=== PATIENT | female | born 1975 | race Caucasian/White ===

== ENCOUNTER → 2021-09-22 11:22 | Outpatient (BNVA) | payer OTHER, SELFPAY | PROVIDERS: PCP Nurse Practitioner Family; Visit Provider Advanced Practice Midwife ==

== ENCOUNTER 2021-09-28 07:41 | Outpatient (REF) | payer OTHER, SELFPAY ==
[2021-09-28 11:36] LABS: Appearance Urine CLEAR; Color Urine YELLOW; Glucose Urine UA NEG (NEG); Leukocyte Esterase Urine NEG (NEG); Nitrite Urine NEG (NEG); PH 6.5 (5.0-8.0); Specific Gravity - Urine <= 1.005 (1.005-1.025); Urine Blood NEG (NEG); Urine Ketones NEG (NEG); Urine Protein NEG (NEG-TRACE)
[2021-09-28 11:50] LABS: Alanine Aminotransferase 12 U/L (0-31); Albumin Level 4.5 g/dL (3.5-5.0); Alkaline Phosphatase 46 U/L (39-117); Anion Gap 12 (12-20); Aspartate Amino Transferase 19 U/L (5-31); Bilirubin Total 0.5 mg/dL (0.0-1.0); Blood Urea Nitrogen 13 mg/dL (9-16); Calcium 9.6 mg/dL (8.4-10.2); Carbon Dioxide 28 mmol/L (22-29); Chloride 103 mmol/L (96-108); Cholesterol 196 mg/dL; Estimated Glomerular Filt Rate > 60; Glucose Fasting 88 mg/dL (60-99); HDL Cholesterol 67 mg/dL; LDL Cholesterol Calculated 116 mg/dl; Potassium 4.1 mmol/L (3.3-5.1); Sodium 139 mmol/L (135-145); Total Protein 6.9 g/dL (6.5-8.0); Triglycerides 68 mg/dL
[2021-09-28 11:57] LABS: TSH reflex Free T4 0.74 uIU/mL (0.32-4.0)
== END 2021-09-28 07:42 | disposition home or self-care (01) ==
LOC: HO.HMGCLDS 07:41
PROVIDERS: Visit Provider Nurse Practitioner Family
DX: Z00.00 Encounter for general adult medical examination without abnormal findings (principal)
CPT/HCPCS: 36415; 80053; 80061; 81003; 84443

== ENCOUNTER 2021-11-16 14:23 | Outpatient (REF) | payer OTHER, SELFPAY ==
[2021-11-17 09:19] LABS: CT PCR NOT DETECTED (Not Detect.); NG PCR NOT DETECTED (Not Detect.)
== END 2021-11-16 14:24 | disposition home or self-care (01) ==
LOC: HO.LAB 14:23
PROVIDERS: Visit Provider Advanced Practice Midwife
DX: Z30.430 Encounter for insertion of intrauterine contraceptive device (principal); Z87.891 Personal history of nicotine dependence
CPT/HCPCS: 58300; 87491; 87591

== ENCOUNTER → 2021-12-26 08:00 | Outpatient (BNVA) | payer OTHER, SELFPAY | PROVIDERS: Visit Provider Advanced Practice Midwife | DX: Z13.89 Encounter for screening for other disorder (principal) ==

== ENCOUNTER 2022-09-26 09:51 | Emergency (ER) | payer OTHER, SELFPAY ==
[2022-09-26 10:06] VITALS: BP 162/103; PULSE 91; RESP 12; TEMP 36.8; O2SAT 100; BMI 30.4
--- NOTE | 2022-09-26 10:15 | ED.GENADULT ---
HPI - General Adult General Chief complaint: General Medical Stated complaint: rectal bleed Time Seen by Provider: 09/26/22 09:59 Source: patient Mode of arrival: ambulatory Limitations: no limitations History of Present Illness HPI narrative: 47-year-old female no significant past medical history presents to the emergency department with complaints nausea, abdominal pain, cramping, and rectal bleeding on Saturday into Saturday. She reports symptoms began on Saturday as intense cramping and abdominal pain she went to the bathroom and noted she was passing small blood clots with stools and blood on the toilet paper when she wiped. She considered presenting to the emergency department yesterday, however; she was unable to assess her stools for blood due to constipation. She has been able to tolerate PO intake without issue for the past 24 hours. She reports her only GI history is occassional reflux when she eats spicy foods. Pt denies any recent illness, sick contacts, paresthesias, weakness, fever, chills, vomiting, diarrhea, constipation, headache, or vision changes. Onset (ago): day(s) Location: abdomen Radiation: non-radiation Severity: moderate Quality: other (cramping) Pain Consistency: now resolved Associated symptoms: denies other symptoms Treatments prior to arrival: none Related Data Home Medications Medication Instructions Recorded Confirmed levonorgestrel 20 mcg/24 hours (8 intrauterine DAILY 12/26/21 yrs) 52 mg intrauterine device (Mirena) Previous Rx's Medication Instructions Recorded cholecalciferol (vitamin D3) 50 50 mcg PO DAILY 90 days #90 tabs 03/22/22 mcg (2,000 unit) tablet nirmatrelvir 300 mg (150 mg See Rx Instructions PO .COMPLEX 5 04/16/22 x2)-ritonavir 100 mg tablet,dose days #30 ea pack(EUA) (Paxlovid) naproxen 500 mg tablet 500 mg PO BID 30 days #60 tabs 09/03/22 Allergies Allergy/AdvReac Type Severity Reaction Status Date / Time penicillin V Allergy Unknown Rash Verified 12/26/21 08:21 Review of Systems Review of Systems: In addition to documented HPI above, the additional ROS was obtained: Constitutional: No Weight loss, No Fever, No Chills ENT/Mouth: No Ear Pain, No Nasal Congestion, No Sinus Pain, No Hoarseness, No sore throat, No Rhinorrhea, No Swallowing Difficulty Cardiovascular: No Chest Pain, No SOB Respiratory: No Cough, No Sputum, No Wheezing Gastrointestinal: No Nausea, No Vomiting, No Diarrhea, No Constipation, No Abdominal pain Genitourinary: No Dysuria, No Urinary Frequency, No Hematuria, No Urinary Incontinence/retention, No Urgency, No Flank Pain Musculoskeletal: No joint pain, No Myalgias, No Joint Swelling Skin: No Skin Lesions, No rash Neuro: No Weakness, No Numbness, No Paresthesias Yes all other systems are reviewed and are negative [facility] Past Medical History Attestation statement: The following information was validated with the patient. Source: old records reviewed Medical History Hand arthritis Raynauds disease Surgical History History of placement of ear tubes Family History Family History Maternal Aunt Colon cancer Social History Social History Housing: House Alcohol intake: current Alcohol intake frequency: holidays/special occasions only Patient Tobacco Use Status: Former Tobacco user Years Smoked: quit 30 years ago Smoked in Last 30 Days: No e-Cigarette/Vaping Use: Never Used Second Hand Smoke Exposure: No Use of substances other than those prescribed or required for medical reasons: No Advance Directives: No Patient : No service: No Current occupational status: employed Current occupation: [employer] Current occupational exposures/hazards: No Physical Exam ED Vital Signs: Vital Signs - 24 hr 09/26/22 10:06 09/26/22 10:26 Temperature 98.2 F 98.2 F Pulse Rate 91 91 Respiratory Rate 12 12 Blood Pressure 162/103 H 162/103 H Pulse Oximetry 100 100 Oxygen Delivery Method Room Air Room Air BMI result Body Mass Index 30.4 Nursing notes and vital signs reviewed. GENERAL APPEARANCE: A&0 x 4, generally well appearing, no acute distress HENMT: Normal to inspection, atraumatic, face symmetrical. Normal external ears, nose, and oropharynx clear. EYE: PERRLA, EOM intact, structures appear normal NECK: Supple without lymphadenopathy. No stiffness or restricted ROM. CHEST: Normal to inspection HEART: Normal rate and regular rhythm, normal S1/S2, no M/R/G LUNGS: LS CTA, moving air well. Able to speak in complete sentences. No crackles, wheezes, or rhonchi auscultated GI: Soft, nontender, nondistended. Normal bowel sounds noted. Rectal exam without external or internal hemorrhoids on exam. No fissures noted. BACK: No CVAT, no obvious deformity EXTREMITIES: Moving all extremities without difficulty. No cyanosis, clubbing, or edema. Normal capillary refill. NEUROLOGICAL: Alert and oriented, moving all 4 extremities with equal strength. CN not formally tested but appearing grossly intact. Observed to ambulate with normal gait. Cognition normal SKIN: Warm and dry without any lesions, rash, or visible sores PSYCH: Cooperative, normal affect, normal thought process Medical Decision Making Medical Decision Making MDM Narrative: 47-year-old female no significant past medical history presents to the emergency department with complaints nausea, abdominal pain, cramping, and rectal bleeding on Saturday into Saturday. Physical exam unremarkable with no internal or external hemorrhoids on rectal. Symptoms have resolved at this point and pt feels comfortable following up outpatient with her PCP for referral for colonoscopy. History and physical exam consistent with acute, resolved hematochezia. Low suspicion for upper or lower GI bleed, anal fissure, internal or external hemorrhoids. Patient is safe for discharge at this time. HPI, PE, and plan discussed with patient and family with no unanswered questions at this time. Patient educated to return to the emergency department with new, worsening, or concerning emergent symptoms. Recommended to follow-up with there primary care provider and race relations professor for further treatment and management. *Refer to Course for additional information on consultations, diagnostic interpretation, consultations, emergency department stay, conversations with patient and family, shared decision making with patient, and more information on medical decision making* Discharge Plan Discharge Clinical Impression: Hematochezia, Gastrointestinal complaints Patient Disposition: Home, Self-Care Instructions: Rectal Bleeding (ED), Colonoscopy (DC) Additional Instructions: Please follow-up with the primary care provider or race relations professor to schedule a colonoscopy to evaluate your rectal bleeding. Prescriptions: No Action cholecalciferol (vitamin D3) 50 mcg (2,000 unit) tablet 50 mcg PO DAILY 90 Days Qty: 90 0RF Paxlovid (EUA) 300 mg (150 mg x 2)-100 mg tablets,dose pack See Rx Instructions PO .COMPLEX 5 Days Qty: 30 0RF Rx Instructions: take TWO 150 mg tablets of nirmatrelvir with ONE 100 mg tablet of ritonavir twice daily for 5 days PO naproxen 500 mg tablet 500 mg PO BID 30 Days Qty: 60 2RF Mirena 20 mcg/24 hours (7 yrs) 52 mg intrauterine device intrauterine DAILY Referrals: [facility] – [place] [facility] [Provider Group] Ariel Harmon, [employer]RECTION[employer] CASEWORK SPECIALIST-BC [Primary Care Provider] - Print Language: Chilean
[2022-09-26 10:26] VITALS: BP 162/103; PULSE 91; RESP 12; TEMP 36.8; O2SAT 100
== END 2022-09-26 11:58 | disposition home or self-care (01) ==
PROVIDERS: Emergency Provider Emergency Medicine; PCP Nurse Practitioner Family
DX: K92.1 Melena (principal); Z87.891 Personal history of nicotine dependence
CPT/HCPCS: 99282; 99284

== ENCOUNTER → 2022-10-10 12:16 | Outpatient (BNVA) | payer OTHER, SELFPAY | PROVIDERS: PCP Nurse Practitioner Family; Referring Provider Nurse Practitioner Family; Visit Provider Internal Medicine | DX: K62.5 Hemorrhage of anus and rectum (principal) | CPT/HCPCS: 99212 ==

== ENCOUNTER 2022-11-01 09:20 | Day surgery (SDC) | payer OTHER, SELFPAY ==
--- NOTE | 2022-10-31 12:26 | P.CONAN_ITS ---
Documented by User: Marlena Hudson NP 10/31/22 12:27 HPI - Anesthesia Eval Consult details Narrative: 47yo F for Colonoscopy PMFSH Active Problems Active Problems: All Active Problems (Updated 10/10/22 @ 12:40 by Lisa Hood MD) Bright red rectal bleeding (Acute) IUD surveillance (Acute) Encounter for annual routine gynecological examination (Acute) Encounter for IUD insertion (Acute) Screening for cervical cancer (Acute) Physical exam (Acute) Past Medical History Medical History Hand arthritis Raynauds disease Family History Family History Maternal Aunt Colon cancer Surgical History Surgical History History of placement of ear tubes Social History Social History Housing: House Alcohol intake: current Alcohol intake frequency: holidays/special occasions only Patient Tobacco Use Status: Former Tobacco user Years Smoked: quit 30 years ago e-Cigarette/Vaping Use: Never Used Second Hand Smoke Exposure: No Use of substances other than those prescribed or required for medical reasons: No Are you DNR?: No Advance Directives: No Advance Directives Information Provided: Yes service: No Current occupational status: employed Current occupation: [employer] Current occupational exposures/hazards: No Meds Allergies Allergy/AdvReac Type Severity Reaction Status Date / Time penicillin V Allergy Unknown Rash Verified 10/10/22 12:41 Home Medications Medication Instructions Recorded Confirmed Last Taken Type levonorgestrel 20 mcg/24 hours (8 intrauterine DAILY 12/26/21 Unknown History yrs) 52 mg intrauterine device (Mirena) Exam Exam Date and Time: October 31, 2022 1226 Assessment and Plan Assessment Anesthesia Assessment: Chart Reviewed Documented by User: Jojo Patrick MD 11/01/22 11:06 [facility], [facility] Past Medical History Medical History Hand arthritis Raynauds disease Functional capacity: independent ambulation Patient : No Family History Family History Maternal Aunt Colon cancer Family history of problems with anesthesia: No Surgical History Surgical History History of placement of ear tubes Social History Social History Housing: House Alcohol intake: current Alcohol intake frequency: holidays/special occasions only Patient Tobacco Use Status: Former Tobacco user Years Smoked: quit 30 years ago e-Cigarette/Vaping Use: Never Used Second Hand Smoke Exposure: No Use of substances other than those prescribed or required for medical reasons: No Are you DNR?: No Advance Directives: No Advance Directives Information Provided: Yes service: No Current occupational status: employed Current occupation: [employer] Current occupational exposures/hazards: No Meds Allergies Allergy/AdvReac Type Severity Reaction Status Date / Time penicillin V Allergy Unknown Rash Verified 10/10/22 12:41 Home Medications Medication Instructions Recorded Confirmed Last Taken Type levonorgestrel 20 mcg/24 hours (8 intrauterine DAILY 12/26/21 Unknown History yrs) 52 mg intrauterine device (Mirena) Exam Airway Mallampati Class: II TM Dist: >3cm Neck ROM: Full Heart: RRR Lungs: CTA Assessment and Plan Final Anesthetic Review Family History of Problems with Anesthesia: No ASA Class: II Final Preanesthetic Review: No Changes in Pt Med Stat, Meds/Allgs Chart Review ed, Consent Obtained/Reviewed and Anes Risks/Benef Reviewed Patient Risk: Low Procedure Risk: Low Anesthetic Plan Anesthetic Plan: MAC: Disposition: Standard PACU
[2022-11-01 10:30] LABS: UPreg QC Valid YES; Urine Pregnancy NEGATIVE (NEGATIVE)
[2022-11-01 10:35] VITALS: BMI 30.1
--- NOTE | 2022-11-01 10:39 | MHC.SHP ---
Pre-Procedural Eval Section A Date of Service: 11/01/22 The History & Physical has been completed within 30 days and I have reviewed it.: Yes Section B Chief Complaint: Hemorrhage of anus and rectum Allergies: Allergies Allergy/AdvReac Type Severity Reaction Status Date / Time penicillin V Allergy Unknown Rash Verified 10/10/22 12:41 Plan Diagnosis/Plan: Unchanged I have reviewed the history and physical and performed a pertinent physical examination on my patient. No changes have occurred unless specified. Time Spent With Patient Time: Total time managing care of this patient today ____ minutes.
--- NOTE | 2022-11-01 10:40 | P.OP_ITS ---
Operative Note Operative Note Date of Service: 11/01/22 Narrative: Procedure: Colonoscopy Indication: Rectal bleeding Endoscopist: Lisa Hood MD Anesthesia Provider: Dr Jojo Samuels Anesthesia type: MAC Instrument: Olympus [id number]-[id number] Consent: Indication, risks vs benefits, and alternatives were discussed with the patient who gave written informed consent to proceed. EKG, pulse, pulse oximetry and blood pressure were monitored throughout the procedure. Please see anesthesia flowsheet. Procedure: The patient was brought to the procedure room and placed in the left lateral decubitus position. IV medications were administered by the anesthesia provider in attendance. A digital rectal exam was performed which was normal. A distal cap was attached to the tip of the scope and the colonoscope was then inserted through the anus and advanced through the colon to the cecum at 75 cm,and terminal ileum. Appendiceal orifice and ileocecal valve were identified. Mucosa was carefully examined under high definition white light as the instrument was slowly withdrawn in a retrograde panoramic fashion. Retroflexion was performed in ascending colon and rectum. The procedure was not difficult. There were no immediate obvious complications. The quality of the prep was BBPS: 2+3+2 = adequate Withdrawal time 9 minutes. Limitations: No limitations. Findings: Mucosa: Normal to cecum and terminal ileum. Protruding lesions: * Medium internal hemorrhoids without stigmata of recent bleeding. Impression: 1. Normal colon and terminal ileum mucosa 2. Internal hemorrhoids Recommendations: - Isolated episode of rectal bleeding was likely secondary to hemorrhoids vs self limiting infectious or ischemic colitis. - Repeat colonoscopy in 10 years for asymptomatic CRC screening.
[2022-11-01 10:47] VITALS: BP 136/78; PULSE 87; RESP 16; TEMP 37; O2SAT 97
[2022-11-01] MEDS: Lactated Ringers 1,000 ML 100 ML IVCONT (10:48)
[2022-11-01 12:13] VITALS: BP 102/59; PULSE 80; RESP 16; TEMP 36.2; O2SAT 99
[2022-11-01 12:28] VITALS: BP 123/71; PULSE 74; RESP 18; TEMP 36.1; O2SAT 99
--- NOTE | 2022-11-01 13:47 | HO.POSTANES ---
Post Anesthesia Evaluation Post Anesthesia Evaluation Vital Signs: Vital Signs Temp Pulse Resp BP Pulse Ox O2 Del Method 11/01/22 12:28 97.0 F 74 18 123/71 99 Room Air 11/01/22 12:13 97.1 F 80 16 102/59 L 99 Room Air 11/01/22 10:47 98.6 F 87 16 136/78 97 Room Air Anesthesia: Monitored Mental Status: Awake Pain Control: Satisfactory Nausea/Vomiting: None Hydration: Adequate Anesthesia-Related Issues: No Anes. Related Issues
== END 2022-11-01 12:49 | disposition home or self-care (01) ==
PROVIDERS: Nurse Practitioner; PCP Nurse Practitioner Family; Visit Provider Internal Medicine
PROC: 0DJD8ZZ Inspection of Lower Intestinal Tract, Via Natural or Artificial Opening Endoscopic (ICD-10-PCS; CPT 45378; principal; 2022-11-01 11:30)
DX: K62.5 Hemorrhage of anus and rectum (principal); K64.8 Other hemorrhoids; I73.00 Raynaud's syndrome without gangrene; Z88.0 Allergy status to penicillin; Z87.891 Personal history of nicotine dependence
CPT/HCPCS: 45378; 81025

== ENCOUNTER → 2022-12-28 07:53 | Outpatient (BNVA) | payer OTHER, SELFPAY | PROVIDERS: PCP Nurse Practitioner Family; Visit Provider Advanced Practice Midwife ==

== ENCOUNTER 2023-05-04 10:50 | Emergency (ER) | payer OTHER, SELFPAY ==
--- NOTE | ~2023-05-04 | MR_ITS ---
EXAMINATION: MRI ORBITS WITHOUT AND WITH CONTRAST CLINICAL INFORMATION: Diplopia. Rule out mass. COMPARISON: Head CT dated 05/04/2023. TECHNIQUE: MRI of the orbits was obtained using routine sequences without and with contrast. Intravenous contrast: Gadavist 10 mL. Limited study with motion artifacts. FINDINGS: The globes are symmetric and normal in appearance. The extraocular muscles and optic nerve sheath complexes appear normal. No retrobulbar soft tissue mass is seen. No post septal soft tissue inflammatory changes are evident. The cavernous sinuses opacify symmetrically. No suprasellar soft tissue abnormality is seen, though assessment is again limited by motion artifacts. There is abnormal enhancement of the cisternal segments of the trigeminal nerves bilaterally. There is also suspected abnormal enhancement of the oculomotor nerves bilaterally in the basilar cisterns. Nonspecific mild scattered white matter signal changes are present. The ventricles are normal in size. No mass effect or midline shift is seen. There are no extra-axial fluid collections. Diffusion-weighted imaging is normal. No abnormal parenchymal or enhancement is seen. The mastoid air cells are well aerated. Small retention cysts visible in the frontal sinuses. MR/MR orbits face neck wo/w con IMPRESSION: Normal limited MRI of the orbits with significant motion artifacts. Pathologic enhancement of the trigeminal and oculomotor nerves bilaterally in the basilar cisterns. Findings may be due to an underlying infectious or inflammatory etiology. Nonspecific mild white matter signal changes intracranially. Imaging findings reported to SUNIL Garza at 4:44 PM on 05/04/2023.
--- NOTE | ~2023-05-04 | CT_ITS ---
EXAMINATION: : CT HEAD WITHOUT CONTRAST CLINICAL INFORMATION: Diplopia COMPARISON: None. TECHNIQUE: Multidetector volumetric imaging of the head was performed without intravenous contrast material. This CT examination was performed using dose optimization techniques as appropriate, variously including the following: *Automated exposure control *Adjustment of mA and/or kV according to patient size (this includes techniques or standardized protocols for targeted exams where dose is matched to indication/reason for exam; i.e. extremities or head) *Use of iterative reconstruction technique Dose: 635 mGy-cm FINDINGS: There is no evidence of acute intracranial hemorrhage or territorial infarction. No abnormal mass-effect or midline shift is seen. Polo to white matter differentiation is well preserved. No extra axial fluid collections. The ventricles are normal in size and configuration. There is no abnormal attenuation within the brain parenchyma. The soft tissues and osseous structures are normal. The sinuses and mastoid air cells are clear. CT/CT head/brain wo IV con IMPRESSION: No acute intracranial pathology.
[2023-05-04 10:59] VITALS: BP 143/96; PULSE 84; RESP 17; TEMP 37; O2SAT 100; BMI 31.6
--- NOTE | 2023-05-04 11:13 | ED.GENADULT ---
HPI - General Adult General Chief complaint: Eye Problems Stated complaint: vission issue Time Seen by Provider: 05/04/23 11:13 Source: patient Mode of arrival: ambulatory Limitations: no limitations History of Present Illness HPI narrative: Patient is a 47-year-old female presenting to the emergency department from urgent care with complaint blurred vision as well as double vision which began upon waking yesterday morning. She denies any headaches, neck or back pain. She denies any eye pain or irritation. Denies any eye drainage. Denies any recent injury, fall or other trauma. She does not wear glasses or contacts. 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 She denies any abdominal pain, nausea. Denies any dizziness or lightheadedness. States symptoms improve if she covers one eye. States blurriness worsens with distance. MD complaint: vision changes Onset (ago): day(s) Location: eyes Associated symptoms: denies other symptoms Treatments prior to arrival: none Related Data Home Medications Medication Instructions Recorded Confirmed levonorgestrel 21 mcg/24 hours (8 intrauterine DAILY 12/26/21 yrs) 52 mg intrauterine device (Mirena) Previous Rx's Medication Instructions Recorded cholecalciferol (vitamin D3) 50 50 mcg PO DAILY 90 days #90 tabs 03/22/22 mcg (2,000 unit) tablet naproxen 500 mg tablet 500 mg PO BID 30 days #60 tabs 09/03/22 Allergies Allergy/AdvReac Type Severity Reaction Status Date / Time penicillin V Allergy Unknown Rash Verified 12/28/22 08:04 Review of Systems Review of Systems: As per HPI. Yes all other systems are reviewed and are negative Constitutional: Constitutional: Reports as per HPI Neurologic: Denies Abnormal speech present [facility] Past Medical History Medical History Hand arthritis Raynauds disease Surgical History History of placement of ear tubes Family History Family History Maternal Aunt Colon cancer Father HTN (hypertension) Mother HTN (hypertension) Social History Social History Housing: House Alcohol intake: current Alcohol intake frequency: holidays/special occasions only Patient Tobacco Use Status: Former Tobacco user Years Smoked: quit 30 years ago e-Cigarette/Vaping Use: Never Used Second Hand Smoke Exposure: No Advance Directives: No Advance Directives Information Provided: No service: No Current occupational status: employed Current occupation: [employer] Current occupational exposures/hazards: No Physical Exam ED Vital Signs: Vital Signs - 24 hr 05/04/23 10:59 05/04/23 13:02 05/04/23 16:58 Temperature 98.6 F 98.0 F Pulse Rate 84 76 70 Respiratory Rate 17 18 15 Blood Pressure 143/96 H 173/95 H 176/91 H Pulse Oximetry 100 97 100 Oxygen Delivery Method Room Air Room Air Room Air BMI result Body Mass Index 31.6 Vital signs have been reviewed and appear to be correct. Blood pressure elevated. Heart rate normal. Respiratory rate normal. Temperature normal. Oxygen saturation normal. Const General: cooperative, healthy appearing and no acute distress Orientation/consciousness: oriented to person, oriented to place, oriented to time and patient oriented x3 Limitations: no limitations HENMT Head: Yes normocephalic and Yes atraumatic Ears: external ears normal General nose exam: Normal external nose present Face and sinus: Yes face symmetric Mouth: oropharynx normal and moist mucous membranes Throat: Yes uvula midline Eyes Other: Patient reports worsening of blurred vision with gazing to the right General: appearance normal, both eyes and all related structures Visual Rodgers: normal visual rodgers by confrontation Alignment and Position: alignment normal and position normal Periorbital: periorbital findings normal Eyelids: Yes eyelids normal Conjunctivae: conjunctivae normal Sclerae: sclerae normal Corneas: corneas normal Pupils: Equal, round and reactive pupils present and Pupil accommodation reflex normal EOM: EOM abnormal (Limited abduction of right eye) and No Nystagmus present Direct Ophthalmoscopy: normal light reflex, no photophobia, no papilledema and fundi normal bilaterally Neck Neck: Yes normal visual inspection, Yes no meningeal signs and Yes supple Resp Effort & Inspection: normal respiratory effort and able to speak in complete sentences Auscultation: clear to auscultation bilaterally Cardio Rate: regular rate Rhythm: regular rhythm Heart sounds: S1 normal heart sound present and S2 normal heart sound present GI Palpation (GI): Soft to palpation and nontender Auscultation: normoactive bowel sounds General: Yes no CVA tenderness Back/Spine/Pelvis Back: no CVA tenderness Skin General skin exam: elasticity normal and turgor normal Neuro General: oriented to person, oriented to place, oriented to time, patient oriented x3, gait normal, tone normal, moves all extremities, Normal light touch and pain sensation, no meningeal signs, no focal motor deficits and CN's II-XI intact bilaterally Cranial nerves: Yes Equal, round and reactive pupils present and No Nystagmus present Cognition (Neuro): normal cognition Speech: No Abnormal speech present Gait exam (Neuro): Normal gait present Motor exam (neuro): 5/5 motor strength present throughout, Pronator motor function not present, Normal motor muscle tone present throughout and Motor abnormalities not present Sensory Exam: Normal double simultaneous stimulation for sensation Extrem General: Yes full ROM, Yes no pedal edema and Yes no calf tenderness Psych Mental Status: mental status grossly normal Affect: normal affect Thought process: Normal thought process present NIH Stroke Scale Internal: Initial- Upon Arrival Time: 11:15 Level of Consciousness: Alert Level of Consciousness Questions: Answers both questions correctly Level of Consciousness Commands: Performs both tasks correctly Best Gaze: Normal Visual: No visual loss Facial Palsy: Normal Motor Arm (Right): No drift Motor Arm (Left): No drift Motor Leg (Right): No drift Motor Leg (Left): No drift Limb Ataxia: Absent Sensory: Normal Best Language: No aphasia Dysarthia: Normal Extinction and Inattention: No abnormality Score: 0 Medications Administered Discontinued Medications Generic Name Dose Route Start Last Admin Trade Name Freq PRN Reason Stop Dose Admin Gadobutrol 10 ml 05/04/23 16:22 05/04/23 16:23 Gadobutrol 10 Ml Vial IVPUSH 05/04/23 16:23 10 ml ONCE ONE Administration Lorazepam 1 mg 05/04/23 13:27 05/04/23 15:01 Lorazepam 2 Mg/Ml Vial IVPUSH 05/04/23 13:28 1 mg ONCE ONE Administration Medical Decision Making Medical Decision Making [facility] Narrative: Patient is a 47-year-old female presenting to the emergency department from urgent care with complaint blurred vision as well as double vision which began upon waking yesterday morning. On exam patient is awake, A+Ox3, VS WNL, afebrile, normal neurological exam without focal deficits, limited EOM with abduction of right eye, IOPs 11 in left eye, 16 right eye, PERRLA, no photophobia or papilledema. Given reported symptoms and physical exam findings, initial differential includes right lateral rectus palsy, sixth cranial nerve palsy, stroke, internuclear ophthalmoplegia, myasthenia gravis, orbital myositis. Plan to obtain CT head, consult with Dr. Jolly. CT negative for acute intracranial pathology. 13:[address] Foster who recommends MRI orbits to rule out mass, otherwise feels symptoms likely related to TIA of 6th cranial nerve. If MRI normal, patient can follow up with him outpatient in the office next week. 16:[address] Dunham from [facility] who reports abnormal enhancements of the trigeminal and oculomotor nerves bilaterally in the basilar cisterns, possibly due to an underlying infectious or inflammatory etiology. Spoke with Dr. Foster via telephone again who does not recommend steroids. Discussed case with Dr. Grimes who recommends contacting neuro masonry supervisor to discuss case. Dr. Grimaldo from neurology recommends lumbar puncture, testing for Lyme, would rule out sarcoid and lymphoma. Discussed lumbar puncture with patient which she is declining at this time. Also offered admission for further evaluation of symptoms which patient also declined. Patient states that she wishes to leave against medical advice and will follow-up with her primary care provider as well as Dr. Foster out patient. Risks of leaving AMA including disability, decreased quality of life, and up to and including which patient verbalized understanding of and signed AMA form. Patient agreeable to blood work for tick-borne illnesses prior to leaving. Return precautions discussed at bedside. Instructed patient to follow-up with her PCP as well as Dr. Foster soon as possible. Patient has been verbalized understanding of and agreement with plan. Differential Diagnosis Differential Diagnoses: The differential diagnosis associated with the presentation includes As per MDM. Admission/Observation Consideration of admission/observation: Escalation of care including admission/observation considered Consult Healthcare Provider Management of the patient was discussed with: Green House Manager (Dr. Foster, Dr. Grimaldo, Dr. Grimes) Lab Data [facility] Lab Attestation statement: I reviewed the patient's lab results. No leukocytosis, no electrolyte abnormalities 05/04/23 14:25 05/04/23 14:25 Labs: Lab Results 05/04/23 05/04/23 Range/Units 14:25 14:25 WBC 5.3 (4.8-10.8) X10*3/uL RBC 4.42 (4.20-5.50) X10*6/uL Hgb 14.1 (12.0-16.0) g/dl Hct 43.2 (37.0-47.0) % MCV 97.7 (80.0-98.0) fL MCH 31.9 (27.0-33.0) pg MCHC 32.6 (31.0-35.0) g/dl RDW 12.6 (11.0-16.0) % Plt Count 259 (160-400) X10*3/uL MPV 10.0 (9.4-12.3) fL Immature Gran % (Auto) 0.2 (0.0-0.4) % Neut % (Auto) 70.7 (45-73) % Lymph % (Auto) 21.0 (20-40) % [place] % (Auto) 6.0 (2-11) % Eos % (Auto) 1.5 (0-4) % Baso % (Auto) 0.6 (0-2) % Lymph # (Auto) 1.1 L (1.2-4.9) X10*3/uL [place] # (Auto) 0.3 (0.1-1.2) X10*3/uL Eos # (Auto) 0.1 (0.0-0.4) X10*3/uL Baso # (Auto) 0.0 (0.0-0.2) X10*3/uL Abs Immat Gran (auto) 0.01 (0.00-0.03) X10*3/uL Absolute Neuts (auto) 3.8 (2.0-8.3) x10*3/uL Absolute Nucleated RBC 0.000 (0.0-0.012) X10*3/uL Nucleated RBC % (auto) 0.0 (0.0-0.2) /100WBC Sodium 141 (135-145) mmol/L Potassium 4.1 (3.3-5.1) mmol/L Chloride 106 (96-108) mmol/L Carbon Dioxide 28 (22-29) mmol/L Anion Gap 11 L (12-20) BUN 9 (9-16) mg/dL Creatinine 0.70 (0.5-1.4) mg/dL Estim Creat Clear Calc 116.6 Estimated GFR > 60 Random Glucose 92 (60-115) mg/dL Calcium 9.6 (8.4-10.2) mg/dL Independent Interpretation I performed an independent interpretation of an: CT Scan Interpretation: No acute Radiology Impression Discussion of test interpretation with radiology: I have reviewed the radiologist's reading. Radiologist Impression: CT/CT head/brain wo IV con IMPRESSION: No acute intracranial pathology. MR/MR orbits face neck wo/w con IMPRESSION: Normal limited MRI of the orbits with significant motion artifacts. ? Pathologic enhancement of the trigeminal and oculomotor nerves bilaterally in the basilar cisterns. Findings may be due to an underlying infectious or inflammatory etiology. ? Nonspecific mild white matter signal changes intracranially. ? Imaging findings reported to SUNIL Garza at 4:44 PM on 05/04/2023. External Record Review External record reviewed: Inpatient record, Office record and Outpatient record Tests considered The following testing was considered but not selected: Lumbar puncture, patient declined Critical Care Time Critical Care Time Critical Care Time: Yes Total Critical Care Time: 60 Attestation: I have personally provided critical care time exclusive of time spent on separately billable procedures. Time includes review of lab data, radiology results, discussion with consultants, and monitoring for potential decompensation. Intervention performed as documented. Discharge Plan Discharge Clinical Impression: Diplopia Patient Disposition: Left Against Medical Advice Instructions: Diplopia (ED) Additional Instructions: Please contact your contact primary care provider for an appointment as soon as possible. You are also being referred to Dr. Foster for an ophthalmologic evaluation. Please contact his office as soon as possible to schedule an appointment. Return to the emergency department with worsening vision changes, new headache, dizziness, lightheadedness, chest pain, shortness of breath, confusion, fevers 100.4? F or greater, or any other concerning symptoms. Prescriptions: No Action cholecalciferol (vitamin D3) 50 mcg (2,000 unit) tablet 50 mcg PO DAILY 90 Days Qty: 90 0RF naproxen 500 mg tablet 500 mg PO BID 30 Days Qty: 60 2RF Mirena 20 mcg/24 hours (7 yrs) 52 mg intrauterine device intrauterine DAILY Referrals: Aroldo Foster [Physician] - Stand Alone Forms: Against Medical Advice
[2023-05-04 13:02] VITALS: BP 173/95; PULSE 76; RESP 18; O2SAT 97
[2023-05-04 14:32] LABS: MANUAL DIFF FLAG NO
[2023-05-04 14:34] LABS: Basophils Percent Auto 0.6 % (0-2); Eosinophils Absolute Auto 0.1 X10*3/uL (0.0-0.4); Eosinophils Percent Auto 1.5 % (0-4); Hematocrit 43.2 % (37.0-47.0); Hemoglobin 14.1 g/dl (12.0-16.0); Imm Gran Abs Auto 0.01 X10*3/uL (0.00-0.03); Imm Gran Pct Auto 0.2 % (0.0-0.4); Lymphocytes Absolute Auto 1.1 X10*3/uL (1.2-4.9); Mean Corpuscular HGB Conc 32.6 g/dl (31.0-35.0); Mean Corpuscular Hemoglobin 31.9 pg (27.0-33.0); Mean Corpuscular Volume 97.7 fL (80.0-98.0); Monocytes Absolute Auto 0.3 X10*3/uL (0.1-1.2); Neutrophils Absolute Auto 3.8 x10*3/uL (2.0-8.3); Neutrophils Percent Auto 70.7 % (45-73); Platelet Count 259 X10*3/uL (160-400); Red Blood Count 4.42 X10*6/uL (4.20-5.50); Red Cell Distribution Width 12.6 % (11.0-16.0); White Blood Count 5.3 X10*3/uL (4.8-10.8)
[2023-05-04 14:51] LABS: Anion Gap 11 (12-20); Blood Urea Nitrogen 9 mg/dL (9-16); Calcium 9.6 mg/dL (8.4-10.2); Carbon Dioxide 28 mmol/L (22-29); Chloride 106 mmol/L (96-108); Creatinine Clr Calc Pharmacy 116.6; Estimated Glomerular Filt Rate > 60; Glucose Random 92 mg/dL (60-115); Potassium 4.1 mmol/L (3.3-5.1); Sodium 141 mmol/L (135-145)
[2023-05-04] MEDS: LORazepam 2 MG/ML VIAL 1 MG IVPUSH (15:01)
[2023-05-04] MEDS: gadobutroL 10 ML VIAL IVPUSH (16:23)
[2023-05-04 16:58] VITALS: BP 176/91; PULSE 70; RESP 15; TEMP 36.7; O2SAT 100
[2023-05-04 18:47] VITALS: BP 194/111; PULSE 78; RESP 16; O2SAT 100
--- NOTE | 2023-05-04 18:49 | PC.NURSE ---
Patient Blood pressure reported to Vicky Garza NP.
[2023-05-06 18:54] LABS: A. Phagocytphilium DNA,RT-PCR NOT DETECTED (NOT DETECTED); Babesia Microti DNA, RT-PCR NOT DETECTED (NOT DETECTED); Borrelia Miyamotoi,DNA RT-PCR NOT DETECTED (NOT DETECTED); E.Chaffeensis DNA RT-PCR NOT DETECTED (NOT DETECTED); Lyme(Borrelia ssp)DNA RT-PCR NOT DETECTED (NOT DETECTED)
== END 2023-05-04 18:52 | disposition left against medical advice (07) ==
PROVIDERS: Registered Nurse Emergency; Emergency Provider Emergency Medicine; PCP Nurse Practitioner Family
DX: H53.2 Diplopia (principal); F17.210 Nicotine dependence, cigarettes, uncomplicated; Z79.899 Other long term (current) drug therapy
CPT/HCPCS: 36415; 70450; 70543; 80048; 85025; 87798; 87801; 96374; 96375; 99284; A9585; J2060

== ENCOUNTER 2023-05-08 15:49 | Outpatient (AMB) | payer OTHER, SELFPAY ==
--- NOTE | 2023-05-08 15:56 | MHC.PC.OV ---
Vital Signs 05/08/23 15:57 Height 5 ft 8 in Weight 204 lb 8 oz BMI 31.1 BP 148/96 H Blood Pressure Location Rt brachial Position Sitting Pulse 79 Pulse Source Pulse Oximeter Pulse Oximetry (%) 98 Oxygen Delivery Method Room Air Intake Visit Reasons: [facility] [place], Vision issue, 05/04 Allergies penicillin V Allergy (Unknown, Verified 05/08/23 16:02) Rash Medication List - Last Reconciled 05/08/23 by ARYAN Magallon levonorgestrel (Mirena) intrauterine DAILY naproxen 500 mg PO BID 30 days Tobacco use date assessed: 05/08/23 Dental Screening Dental Screen Date: 05/08/23 Did you have a dental visit in the last 12 months?: Yes Did you have a dental problem in the last 6 months where you did not have access to dental care?: No Was dental information given to patient?: Patient has dentist HPI [facility] [place], Vision issue, 05/04 HPI Details Pt was seen in the ER on 05/04 after being sent from urgent care c/o blurred vision and double vision. Head CT was negative for acute intracranial pathology. Dr. Foster recommended an MRI, which showed abnormal enhancements of the trigeminal and oculomotor nerves bilaterally in the basilar cisterns, possibly due to an underlying infectious or inflammatory etiology. Dr. Foster did not recommend steroids. Pt was seen by neurology who recommended lumbar puncture and lyme testing, pt declined lumbar puncture. Tick panel was negative. It was recommended that pt be admitted, though she refused and left AMA. Pt saw her hospital cna this morning who recommended follow up with neurology and lumbar puncture. Will refer to neurology urgently. Pt has been wearing an eye patch which helps with the double vision. Pt is seeing another environmental services specialist in June. BP is elevated today. Will have pt monitor her BP at home and record readings, starting losartan 25mg. She will bring readings with her to her physical next month. Denies chest pain, shortness of breath, headache, dizziness, and blurred vision. COUNTS INCLUDE 234 BEDS AT THE [facility] Medical History Hand arthritis Raynauds disease Surgical History History of placement of ear tubes Family History Maternal Aunt Colon cancer Father HTN (hypertension) Mother HTN (hypertension) Social History Housing: House Alcohol intake: never Patient Tobacco Use Status: Current someday Tobacco user Tobacco use type: Cigarette Years Smoked: quit 30 years ago e-Cigarette/Vaping Use: Never Used Second Hand Smoke Exposure: No service: No Current occupational status: employed Current occupation: [employer] Current occupational exposures/hazards: No Cognitive needs: No Hearing needs: No Vision needs: No Female Reproductive History Menstrual Age of Menarche: 9 Questionnaire Thrive Questionnaire Date Thrive assessed: 09/19/21 MIGUEL-7 AMB Questionnaire MIGUEL-7 Date MIGUEL - 7 assessed: 09/19/21 Source: Developed by Drs. Randy Dowell, Silvia Andre, Jonnathan Abdul and colleagues, with an educational derian from [employer]. Review of Systems Const Reports as per HPI ENT Denies dizziness Neuro Denies dizziness Physical exam (Primary Care) Vital Signs: Last Vital Signs Pulse 79 05/08/23 15:57 BP 148/96 H 05/08/23 15:57 Pulse Ox 98 05/08/23 15:57 Oxygen Delivery Method Room Air 05/08/23 15:57 BMI result Body Mass Index 31.1 Tobacco/Smoking Status: Tobacco use Status Tobacco use date assessed 05/08/23 05/08/23 16:05 Patient Tobacco Use Status Current someday Tobacco 05/08/23 16:05 Tobacco use type Cigarette 05/08/23 16:05 e-Cigarette/Vaping Use Never Used 05/08/23 15:57 Thrive Assessment: Date of Thrive Assessment Date Thrive assessed 09/19/21 05/08/23 15:57 Const General: cooperative Nutritional Appearance: obese Orientation/consciousness: patient oriented x3 Resp Effort & Inspection: normal respiratory effort Auscultation: clear to auscultation bilaterally Cardio Rate: regular rate Rhythm: regular rhythm Heart sounds: S1 normal heart sound present, S2 normal heart sound present and Murmur heart sound present systolic (faint) Neuro Other: finger to thumb intact bilat, can tandem walk General: patient oriented x3 Cranial nerves: Yes CN's II-XII intact bilaterally Coordination: [id number] test normal Romberg Test: Negative Psych Appearance: grossly normal Mental Status: mental status grossly normal Speech and movement: Normal speech and movement present Affect: normal affect Attitude: cooperative Thought process: Normal thought process present Thought content: Normal thought content present Insight: Good insight present (Psych) Judgement: Good judgement present (Psych) Assessment and Plan Assessment & Plan (1) Diplopia: Code(s): H53.2 - Diplopia Plan: Referred to neurology (2) Systolic murmur: Code(s): R01.1 - Cardiac murmur, unspecified Plan The patient agreed to the use of a medical record consultant for this encounter. Scribed for ARYAN Hernandez by Aster Adams medical record consultant, on 05/08/2023 at 16:15 EST. Orders: Orders CA echo transthoracic complete Today R01.1 - Cardiac murmur, unspecified Referrals Neurology Referral H53.2 - Diplopia Medications: New losartan 25 mg PO DAILY 90 tabs 0RF Coding Level of Care Code Est Pt Level 3 (88030) Diagnoses Diplopia H53.2 Systolic murmur R01.1
[2023-05-08 15:57] VITALS: BP 148/96; PULSE 79; O2SAT 98; BMI 31.1
== END 2023-05-08 16:39 | disposition home or self-care (01) ==
PROVIDERS: PCP Nurse Practitioner Family; Visit Provider Nurse Practitioner Family
DX: H53.2 Diplopia (principal); R01.1 Cardiac murmur, unspecified
CPT/HCPCS: 99213

== ENCOUNTER → 2023-06-07 07:38 | Outpatient (REF) | payer OTHER, SELFPAY | LOC: HO.CARD 07:38 | PROVIDERS: PCP Nurse Practitioner Family; Visit Provider Nurse Practitioner Family | DX: R01.1 Cardiac murmur, unspecified (principal) | CPT/HCPCS: 93306 ==

== ENCOUNTER → 2023-06-07 07:40 | Outpatient (BNV) | payer OTHER, SELFPAY | PROVIDERS: PCP Nurse Practitioner Family; Visit Provider Internal Medicine | DX: I36.1 Nonrheumatic tricuspid (valve) insufficiency (principal) | CPT/HCPCS: 93306 ==

== ENCOUNTER 2023-06-12 09:10 | Day surgery (SDC) | payer OTHER, SELFPAY ==
--- NOTE | ~2023-06-12 | FL_ITS ---
EXAMINATION: XR LUMBAR PUNCTURE CLINICAL INFORMATION: Meningitis. COMPARISON: CT head of 05/04/2023 and MRI of the lumbar spine of 10/23/2012 TECHNIQUE: Fluoroscopic-guided lumbar puncture. FINDINGS: Informed consent was obtained from the patient prior to the procedure. During this process, the procedure and potential alternatives were explained, along with the intended outcome and benefits. The risks of the procedure, as well as the risk of not doing the procedure, were discussed. The patient was given the opportunity to ask questions regarding the procedure and appeared competent to make medical decisions. A signed consent form which documents this discussion was placed in the medical record. Using sterile technique and fluoroscopic guidance from a posterior approach a 22-gauge spinal needle was directed into the thecal sac at the L3-L4 level. Opening pressure was 16 cm of water. The CSF was clear. A total of 7.2 mL of fluid was removed. Patient tolerated procedure without difficulty. FLUOROSCOPY TIME: 22 seconds DOSE AREA PRODUCT: 416.3 uGy-m2 (microgray-meter squared) FL/FL guided lumbar puncture LP IMPRESSION: Successful lumbar puncture L3-L4 level.
[2023-06-12 09:42] VITALS: BMI 30.4
[2023-06-12 13:35] VITALS: BP 141/77; PULSE 71; RESP 16; TEMP 36.9; O2SAT 100
[2023-06-12 14:27] VITALS: BP 135/83; PULSE 77; RESP 16; O2SAT 100
[2023-06-12 15:13] VITALS: BP 155/92; PULSE 71; RESP 16; O2SAT 100
[2023-06-12 16:11] VITALS: BP 141/91; PULSE 70; RESP 18; O2SAT 100
[2023-06-14 21:31] LABS: Oligoclonal Serum Yes
[2023-06-15 21:53] LABS: Albumin 3.9 g/dL (3.6-5.1); IgG 699 mg/dL (600-1640); IgG Synthesis Rate 0.2 mg/24 h (-9.9-3.3); IgG, CSF 3.1 mg/dL (0.8-7.7)
[2023-06-18 20:32] LABS: Oligoclonal Banding Present (Absent)
== END 2023-06-12 16:30 | disposition home or self-care (01) ==
PROVIDERS: Psychiatry & Neurology Neurology; PCP Nurse Practitioner Family; Visit Provider Radiology Diagnostic Radiology
PROC: 009U3ZZ Drainage of Spinal Canal, Percutaneous Approach (ICD-10-PCS; CPT 62270; principal; 2023-06-12 11:00)
DX: G03.9 Meningitis, unspecified (principal)
CPT/HCPCS: 36415; 62328; 81025; 82042; 82945; 83916; 84157; 85049; 85610; 85730; 87015; 87070; 87205; 89051

== ENCOUNTER → 2023-06-12 12:45 | Outpatient (BNV) | payer OTHER, SELFPAY | PROVIDERS: PCP Nurse Practitioner Family; Visit Provider Radiology Diagnostic Radiology | DX: G03.9 Meningitis, unspecified (principal) | CPT/HCPCS: 62328 ==

== ENCOUNTER 2023-06-13 12:49 | Outpatient (AMB) | payer OTHER, SELFPAY ==
--- NOTE | 2023-06-13 13:02 | A.OFFPC_ITS ---
Vital Signs 06/13/23 13:03 Height 5 ft 8 in Weight 211 lb 6 oz BMI 32.1 BP 130/88 Blood Pressure Location Rt brachial Position Sitting Pulse 71 Pulse Source Pulse Oximeter Pulse Oximetry (%) 98 Oxygen Delivery Method Room Air Intake Visit Reasons: Adult CPE Female 18-49 Allergies penicillin V Allergy (Unknown, Verified 06/13/23 13:04) Rash Medication List - Last Reconciled 06/13/23 by ARYAN Magallon levonorgestrel (Mirena) 1 device intrauterine DAILY losartan 25 mg PO DAILY naproxen 500 mg PO BID 30 days prednisone mg PO Tobacco use date assessed: 06/13/23 Dental Screening Dental Screen Date: 06/13/23 Did you have a dental visit in the last 12 months?: Yes Did you have a dental problem in the last 6 months where you did not have access to dental care?: No Was dental information given to patient?: Patient has dentist HPI Encounter for routine adult health examination HPI Details Pt is here for a PE. Will order labs. Colon screen is up to date. Has a bus or truck garage mechanic. Pt is following up with neuro for possible meningitis. 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 Findings may be due to an underlying infectious or inflammatory etiology. Pt had a lumbar puncture yesterday. She is currently wearing a right eye patch to help with her double vision. She is following up with her eye doctor tomorrow. Pt would like to try bupropion for smoking cessation/depression, will send. NOTE: was told to start doxy and prednisone, sent by another provider [facility] Medical History Hand arthritis Raynauds disease Surgical History History of placement of ear tubes Family History Maternal Aunt Colon cancer Father HTN (hypertension) Mother HTN (hypertension) Social History Housing: House Alcohol intake: never Patient Tobacco Use Status: Current someday Tobacco user Tobacco use type: Cigarette Years Smoked: quit 30 years ago e-Cigarette/Vaping Use: Never Used Second Hand Smoke Exposure: No service: No Current occupational status: employed Current occupation: class [employer] Current occupational exposures/hazards: No Cognitive needs: No Hearing needs: No Vision needs: No Female Reproductive History Menstrual Age of Menarche: 9 Questionnaire Thrive Questionnaire Date Thrive assessed: 09/19/21 MIGUEL-7 AMB Questionnaire MIGUEL-7 Date MIGUEL - 7 assessed: 09/19/21 Source: Developed by Drs. Randy Dowell, Silvia Andre, Jonnathan Abdul and colleagues, with an educational derian from [employer]. Review of Systems Const Denies chills and Denies fever(s) Eyes Denies blurry vision ENT Denies vertigo, Denies dizziness and Denies sore throat Card Denies chest pain at rest, Denies chest pain with activity, Denies diaphoresis, Denies dyspnea and Denies dyspnea on exertion Resp Denies cough, Denies dyspnea, Denies dyspnea on exertion and Denies wheezing GI Denies abdominal pain, Denies melena, Denies hematochezia, Denies constipation, Denies diarrhea and Denies loose stools Denies hematuria Musc Denies numbness and Denies tingling Skin/Breast Denies lesions Neuro Denies vertigo, Denies dizziness, Denies numbness and Denies tingling Psych Denies anxiety, Denies depression, Denies homicidal ideation, Denies suicidal ideation and Denies other (substance abuse) Aller/Immun Denies wheezing Physical exam (Primary Care) Vital Signs: Last Vital Signs Pulse 71 06/13/23 13:03 BP 130/88 06/13/23 13:03 Pulse Ox 98 06/13/23 13:03 Oxygen Delivery Method Room Air 06/13/23 13:03 BMI result Body Mass Index 32.1 Tobacco/Smoking Status: Tobacco use Status Tobacco use date assessed 06/13/23 06/13/23 13:08 Patient Tobacco Use Status Current someday Tobacco 06/13/23 13:08 Tobacco use type Cigarette 06/13/23 13:08 e-Cigarette/Vaping Use Never Used 06/13/23 13:08 Thrive Assessment: Date of Thrive Assessment Date Thrive assessed 09/19/21 06/13/23 13:08 Const General: cooperative Nutritional Appearance: well nourished Orientation/consciousness: patient oriented x3 HENMT Head: Yes normal to inspection, Yes normocephalic and Yes atraumatic Ears: TM's normal bilaterally Eyes Other: wearing right eye patch Neck Neck: Yes normal visual inspection and Yes no lymphadenopathy Thyroid: Thyroid normal Resp Effort & Inspection: normal respiratory effort Auscultation: clear to auscultation bilaterally Cardio Rate: regular rate Rhythm: regular rhythm Heart sounds: S1 normal heart sound present, S2 normal heart sound present and n o murmurs GI Palpation (GI): Soft to palpation and nontender Auscultation: normal bowel sounds Skin Other: no signs of infection at lumbar puncture site Rashes: no rashes Neuro General: patient oriented x3, moves all extremities, no focal motor deficits and deep tendon reflexes 2+ bilaterally Romberg Test: Negative Psych Appearance: grossly normal Mental Status: mental status grossly normal Speech and movement: Normal speech and movement present Affect: normal affect Attitude: cooperative Thought process: Normal thought process present Thought content: Normal thought content present Insight: Good insight present (Psych) Judgement: Good judgement present (Psych) Assessment and Plan Assessment & Plan (1) Encounter for routine adult health examination: Code(s): Z00.00 - Encounter for general adult medical examination without abnormal findings (2) Physical exam: Code(s): Z00.00 - Encounter for general adult medical examination without abnormal findings Plan The patient agreed to the use of a medical detail representative for this encounter. Scribed for ARYAN Hernandez by Aster Adams medical detail representative, on 06/13/2023 at 13:15 EST Orders: Orders Lipid Panel Today Z00.00 - Encounter for general adult medical examination without abnormal findings Complete Blood Count Auto Diff Today Z00.00 - Encounter for general adult medical examination without abnormal findings Comprehensive [place]. Panel Fast Today Z00.00 - Encounter for general adult medical examination without abnormal findings TSH reflex Free T4 Today Z00.00 - Encounter for general adult medical examination without abnormal findings UA CC w/rflx Micro + Cult Today Z00.00 - Encounter for general adult medical examination without abnormal findings Medications: New bupropion HCl first 3 days, once a day dosing. 150 mg PO BID 30 days 60 tabs 2RF Coding Level of Care Code Est Pt Prev Care 40-64y(16138) Diagnoses Encounter for routine adult health examination Z00.00 Physical exam Z00.00
[2023-06-13 13:03] VITALS: BP 130/88; PULSE 71; O2SAT 98; BMI 32.1
== END 2023-06-13 13:37 | disposition home or self-care (01) ==
PROVIDERS: PCP Nurse Practitioner Family; Visit Provider Nurse Practitioner Family
DX: Z00.00 Encounter for general adult medical examination without abnormal findings (principal)
CPT/HCPCS: 99396

== ENCOUNTER 2023-07-03 10:07 | Outpatient (REF) | payer OTHER, SELFPAY ==
[2023-07-08 13:07] LABS: 18 KD (IgG) Band REACTIVE; 23 KD (IgG) Band NON-REACTIVE; 23 KD (IgM) Band NON-REACTIVE; 28 KD (IgG) Band NON-REACTIVE; 30 KD (IgG) Band NON-REACTIVE; 39 KD (IgM) Band NON-REACTIVE; 39KD (IgG) Band REACTIVE; 41 KD (IgM) Band REACTIVE; 41KD (IgG) Band REACTIVE; 45 KD (IgG) Band NON-REACTIVE; 58 KD (IgG) Band REACTIVE; 66 KD (IgG) Band NON-REACTIVE; 93 KD (IgG) Band REACTIVE; Lyme IgG Blot Interp POSITIVE (NEGATIVE); Lyme IgM Blot Interp NEGATIVE (NEGATIVE)
[2023-07-09 09:22] LABS: Lyme Abs Screen POSITIVE
== END 2023-07-03 10:08 | disposition home or self-care (01) ==
LOC: HO.LAB 10:07
PROVIDERS: PCP Nurse Practitioner Family; Visit Provider Psychiatry & Neurology Neurology
DX: G03.9 Meningitis, unspecified (principal)
CPT/HCPCS: 36415; 86617; 86618

== ENCOUNTER 2023-07-12 14:13 | Outpatient (REF) | payer OTHER, SELFPAY ==
--- NOTE | ~2023-07-12 | XR_ITS ---
EXAMINATION: XR CHEST CLINICAL INFORMATION: Cough, unspecified COMPARISON: Chest 05/22/2016 TECHNIQUE: 2 views of the chest were obtained. FINDINGS: No significant abnormality is noted involving the heart, lungs, mediastinum, bony thorax or soft tissues. XR/XR chest 2V IMPRESSION: Unremarkable examination.
[2023-07-12 16:03] LABS: Erythrocyte Sedimentation Rate 1 MM/HR (0-20)
[2023-07-13 03:40] LABS: Syphilis Screen Nonreactive (Nonreactive)
[2023-07-13 04:10] LABS: HBS Num1 0.13 mIU/mL (0-7.99); HIV AB/AG Nonreactive (Nonreactive); HIV Num 1 0.07 S/CO (0.00-0.99); ~HepC Num1 0.02 S/CO (0.00-0.79); ~Hepatitis B Surface Antibody NONREACTIVE (Nonreactive); ~Hepatitis C Antibody Nonreactive (Nonreactive)
== END 2023-07-12 14:14 | disposition home or self-care (01) ==
LOC: HO.LAB 14:13
PROVIDERS: PCP Nurse Practitioner Family; Visit Provider Internal Medicine
DX: Z11.4 Encounter for screening for human immunodeficiency virus [HIV] (principal); H53.2 Diplopia; R53.83 Other fatigue; R05.9 Cough, unspecified
CPT/HCPCS: 36415; 71046; 85652; 86706; 86780; 86803; 87389; 99202

== ENCOUNTER 2023-07-12 14:13 | Outpatient (AMB) | payer OTHER, SELFPAY ==
--- NOTE | 2023-07-12 14:19 | MHC.OFFVIS ---
Intake Vital Signs 07/12/23 14:23 Height 5 ft 8 in Weight 219 lb BMI 33.3 BP 116/71 Blood Pressure Location Lt brachial Position Sitting Pulse 82 Pulse Source Pulse Oximeter Temp 97.8 F Temp Source Oral Pulse Oximetry (%) 99 Oxygen Delivery Method Room Air Intake Visit Reasons: Ref.,Lyme Meningitis Allergies penicillin V Allergy (Unknown, Verified 07/12/23 14:24) Rash HPI Ref.,Lyme Meningitis HPI Details She presents with double vision both eyes since end June. She has had to wear eye patch. She is referral from Neurology. She had LP 07/03 showed lymphocytic preponderance,oligoclonal band and Lyme serologies IgG positive and IgM negative. I dont see Lyme CSF PCR. She had MRI brain bilateral enhancement trigeminal oculomotor nerves. She has no fever ,chills or rash or embedded tick. [facility] Medical History Cough Fatigue Hand arthritis Raynauds disease Surgical History History of placement of ear tubes Family History Maternal Aunt Colon cancer Father HTN (hypertension) Mother HTN (hypertension) Social History Housing: House Alcohol intake: never Patient Tobacco Use Status: Current someday Tobacco user Tobacco use type: Cigarette Years Smoked: quit 30 years ago e-Cigarette/Vaping Use: Never Used Second Hand Smoke Exposure: No service: No Current occupational status: employed Current occupation: class [employer] Current occupational exposures/hazards: No Cognitive needs: No Hearing needs: No Vision needs: No Female Reproductive History Menstrual Age of Menarche: 9 Review of Systems Const All systems reviewed & are unremarkable except as noted in HPI and below Physical Exam Vital Signs: Last Vital Signs Temp 97.8 F 07/12/23 14:23 Pulse 82 07/12/23 14:23 BP 116/71 07/12/23 14:23 Pulse Ox 99 07/12/23 14:23 Oxygen Delivery Method Room Air 07/12/23 14:23 BMI result Body Mass Index 33.3 Const General: cooperative Orientation/consciousness: patient oriented x3 HEENT Head: Yes normal to inspection Mouth: Normal oral and palatal mucosa present Eyes General: appearance normal, both eyes and all related structures Pupils: Equal, round and reactive pupils present Resp Effort & Inspection: normal respiratory effort Cardio Rate: regular rate Rhythm: regular rhythm GI Palpation (GI): Soft to palpation and nontender General: Yes no CVA tenderness Back/Spine/Pelvis Back: no CVA tenderness Skin General skin exam: no rashes or lesions noted Neuro Other: ophthalmoplegia right eye General: patient oriented x3 Cranial nerves: Yes CN's II-XII intact bilaterally and Yes Equal, round and reactive pupils present Extrem General: Yes normal to inspection Psych Appearance: grossly normal Assessment & Plan Assessment & Plan (1) Diplopia: Comment: She has diplopia and no definite Lyme history. She is not better since taking Doxycycline Possible ?MS or other neurologic syndrome like vasculitis. Code(s): H53.2 - Diplopia Plan: Check (2) Fatigue: Code(s): R53.83 - Other fatigue Plan Would check labs and ESR. Consider IV Ceftriaxone 2-6 weeks IV through PICC line but would be very unusual to help with no help taking Doxycycline. She has seen release coordinator as well. I think not Lyme and search other causes but will offer IV antibiotics just in case. Orders: Orders HIV Ab/Ag 07/12/23 H53.2 - Diplopia Hepatitis C Antibody 07/12/23 R53.83 - Other fatigue Hepatitis B Surface Antibody 07/12/23 R53.83 - Other fatigue Syphilis Screen 07/12/23 R53.83 - Other fatigue Erythrocyte Sedimentation Rate 07/12/23 H53.2 - Diplopia XR chest 2V 07/12/23 R05.9 - Cough, unspecified Coding Level of Care Code New Pt Level 3 (98297) Diagnoses Diplopia H53.2 Fatigue R53.83
[2023-07-12 14:23] VITALS: BP 116/71; PULSE 82; TEMP 36.6; O2SAT 99; BMI 33.3
== END 2023-07-12 14:44 | disposition home or self-care (01) ==
PROVIDERS: PCP Nurse Practitioner Family; Visit Provider Internal Medicine
DX: H53.2 Diplopia (principal); R53.83 Other fatigue
CPT/HCPCS: 99203

== ENCOUNTER 2023-08-13 08:04 | Outpatient (REF) | payer OTHER, SELFPAY ==
[2023-08-13 11:21] LABS: MANUAL DIFF FLAG NO
[2023-08-13 11:27] LABS: Basophils Percent Auto 0.8 % (0-2); Eosinophils Percent Auto 0.8 % (0-4); Hematocrit 43.9 % (37.0-47.0); Imm Gran Abs Auto 0.02 X10*3/uL (0.00-0.03); Imm Gran Pct Auto 0.4 % (0.0-0.4); Lymphocytes Absolute Auto 0.9 X10*3/uL (1.2-4.9); Lymphocytes Percent Auto 17.7 % (20-40); Mean Corpuscular HGB Conc 31.9 g/dl (31.0-35.0); Mean Corpuscular Hemoglobin 31.8 pg (27.0-33.0); Mean Corpuscular Volume 99.8 fL (80.0-98.0); Mean Platelet Volume 10.7 fL (9.4-12.3); Monocytes Absolute Auto 0.3 X10*3/uL (0.1-1.2); Monocytes Percent Auto 5.5 % (2-11); Neutrophils Absolute Auto 3.8 x10*3/uL (2.0-8.3); Neutrophils Percent Auto 74.8 % (45-73); Platelet Count 271 X10*3/uL (160-400); Red Cell Distribution Width 12.5 % (11.0-16.0); White Blood Count 5.1 X10*3/uL (4.8-10.8)
[2023-08-13 11:47] LABS: Appearance Urine Cloudy; Color Urine Yellow; Glucose Urine UA Negative (Negative); Leukocyte Esterase Urine Negative (Negative); Nitrite Urine Negative (Negative); Urine Blood Negative (Negative); Urine Ketones Negative (Negative); Urine Protein Negative (Neg-Trace)
[2023-08-13 11:50] LABS: Alanine Aminotransferase 12 U/L (0-31); Albumin Level 4.3 g/dL (3.5-5.0); Alkaline Phosphatase 53 U/L (39-117); Anion Gap 11 (12-20); Aspartate Amino Transferase 20 U/L (5-31); Bilirubin Total 0.6 mg/dL (0.0-1.0); Blood Urea Nitrogen 12 mg/dL (9-16); Calcium 9.3 mg/dL (8.4-10.2); Carbon Dioxide 26 mmol/L (22-29); Chloride 105 mmol/L (96-108); Cholesterol 178 mg/dL (<200); Estimated Glomerular Filt Rate > 60; Glucose Fasting 103 mg/dL (60-99); HDL Cholesterol 63 mg/dL (>40); Iron 122 mcg/dL (30-160); LDL Cholesterol Calculated 100 mg/dL (<100); Percent Iron Saturation 36 % (15-50); Potassium 4.2 mmol/L (3.3-5.1); Sodium 138 mmol/L (135-145); Total Iron Binding Capacity 336 mcg/dL (228-428); Total Protein 6.8 g/dL (6.5-8.0); Triglycerides 79 mg/dL (<150); Unsaturated Iron Binding 214 ug/dL
[2023-08-13 11:56] LABS: TSH reflex Free T4 0.89 uIU/mL (0.32-4.0)
[2023-08-13 11:58] LABS: Ferritin 54 ng/mL (10-250)
== END 2023-08-13 08:05 | disposition home or self-care (01) ==
LOC: HO.HMGCLDS 08:04
PROVIDERS: Internal Medicine; PCP Nurse Practitioner Family; Visit Provider Nurse Practitioner Family
DX: Z00.00 Encounter for general adult medical examination without abnormal findings (principal); K62.5 Hemorrhage of anus and rectum
CPT/HCPCS: 36415; 80053; 80061; 81003; 82728; 83540; 84443; 85025; 85027

== ENCOUNTER 2024-03-04 15:19 | Outpatient (AMB) | payer OTHER, SELFPAY ==
--- NOTE | 2024-03-04 15:25 | MHC.PC.OV ---
Vital Signs 03/04/24 15:27 Height 5 ft 8 in Weight 203 lb BMI 30.9 BP 120/80 Blood Pressure Location Rt brachial Position Sitting Pulse 80 Pulse Source Pulse Oximeter Pulse Oximetry (%) 98 Oxygen Delivery Method Room Air Intake Visit Reasons: 6 month follow up Intake Note: Patient here to discuss right knee and hip pain that has been present for at least 6 months. Allergies penicillin V Allergy (Unknown, Verified 03/04/24 16:51) Rash Medication List - Last Reconciled 03/04/24 by ARYAN Magallon bupropion HCl SR 150 mg PO BID levonorgestrel (Mirena) 1 device intrauterine DAILY naproxen 500 mg PO BID 30 days Tobacco use date assessed: 03/04/24 Dental Screening Dental Screen Date: 03/04/24 Did you have a dental visit in the last 12 months?: Yes Did you have a dental problem in the last 6 months where you did not have access to dental care?: No Was dental information given to patient?: Patient has dentist HPI 6 month follow up HPI Details Pt reports a small darker lesion to her right episcopalian region. Will refer to derm. Pt c/o right knee pain. She also reports right hip pain. She denies any popping or clicking. Pt works at a [employer] and is bending and moving for over 70 hours per week (works 7 days a week). Will order XRs. ? osteoarthritis component. Denies fever, chills, and dizziness. [facility] Medical History Lyme meningitis Cough Fatigue Hand arthritis Raynauds disease Surgical History History of placement of ear tubes Family History Maternal Aunt Colon cancer Father HTN (hypertension) Mother HTN (hypertension) Social History Housing: House Alcohol intake: never Patient Tobacco Use Status: Current someday Tobacco user Tobacco use type: Cigarette Years Smoked: quit 30 years ago e-Cigarette/Vaping Use: Never Used Second Hand Smoke Exposure: No service: No Current occupational status: employed Current occupation: class [employer] Current occupational exposures/hazards: No Cognitive needs: No Hearing needs: No Vision needs: No Female Reproductive History Menstrual Age of Menarche: 9 Questionnaire PHQ-9 Over the last 2 weeks, how often have you been bothered by any of the following problems? 62074 - PHQ-9 Billing: Patient declined-do not bill Source: Developed by Drs. Randy Dowell, Silvia Andre, Jonnathan Abdul and colleagues, with an educational derian from [employer]. Thrive Questionnaire Date Thrive assessed: 09/19/21 AUDIT C Alcohol Use Questionnaire (AUDIT-C) 1. How often do you have a drink containing alcohol?: Monthly or less 2. How many drinks containing alcohol do you have on a typical day when you are drinking?: 1 or 2 3. How often do you have six or more drinks on one occasion?: Never Total Score: 1 MIGUEL-7 AMB Questionnaire MIGUEL-7 Date MIGUEL - 7 assessed: 09/19/21 Source: Developed by Drs. Randy Dowell, Silvia Andre, Jonnathan Abdul and colleagues, with an educational derian from [employer]. MIGUEL-7 Assessment Billing MIGUEL-7 Assessment Tool: pt declined-do not bill Review of Systems Const Reports as per HPI Physical exam (Primary Care) Vital Signs: Last Vital Signs Pulse 80 03/04/24 15:27 BP 120/80 03/04/24 15:27 Pulse Ox 98 03/04/24 15:27 Oxygen Delivery Method Room Air 03/04/24 15:27 BMI result Body Mass Index 30.9 Tobacco/Smoking Status: Tobacco use Status Tobacco use date assessed 03/04/24 03/04/24 15:32 Patient Tobacco Use Status Current someday Tobacco 03/04/24 15:26 Tobacco use type Cigarette 03/04/24 15:26 e-Cigarette/Vaping Use Never Used 03/04/24 15:26 Thrive Assessment: Date of Thrive Assessment Date Thrive assessed 09/19/21 03/04/24 15:26 Const General: cooperative Nutritional Appearance: obese Orientation/consciousness: patient oriented x3 Resp Effort & Inspection: normal respiratory effort Auscultation: clear to auscultation bilaterally Cardio Rate: regular rate Rhythm: regular rhythm Heart sounds: S1 normal heart sound present and S2 normal heart sound present Skin Other: right episcopalian with small darker found slightly raised lesion Neuro General: patient oriented x3 Extrem Other: difficult to perform right hip exam, right knee: - lachmans, - mcmurrays, some tenderness noted with extension and flexion Psych Appearance: grossly normal Mental Status: mental status grossly normal Speech and movement: Normal speech and movement present Affect: normal affect Attitude: cooperative Thought process: Normal thought process present Thought content: Normal thought content present Insight: Good insight present (Psych) Judgement: Good judgement present (Psych) Assessment and Plan Assessment & Plan (1) Right hip pain: Code(s): M25.551 - Pain in right hip Plan: XR ordered (2) Right knee pain: Code(s): M25.561 - Pain in right knee Plan: XR ordered (3) Right hip pain: Code(s): M25.551 - Pain in right hip Plan: XR ordered Plan The patient agreed to the use of a medical intern for this encounter. Scribed for KORINA Hernandez-AUSTIN by Aster Adams medical intern, on 03/04/2024 at 15:45 EST. Orders: Orders XR knee RT 2V Today M25.561 - Pain in right knee XR hip RT min 2V Today M25.551 - Pain in right hip Referrals Dermatology Referral L98.9 - Disorder of the skin and subcutaneous tissue, unspecified Coding Level of Care Code Est Pt Level 3 (97293) Diagnoses Right hip pain M25.551 Right knee pain M25.561
[2024-03-04 15:27] VITALS: BP 120/80; PULSE 80; O2SAT 98; BMI 30.9
== END 2024-03-04 16:17 | disposition home or self-care (01) ==
PROVIDERS: PCP Nurse Practitioner Family; Visit Provider Nurse Practitioner Family
DX: M25.551 Pain in right hip (principal); M25.561 Pain in right knee
CPT/HCPCS: 99213

== ENCOUNTER 2024-03-11 09:15 | Outpatient (REF) | payer OTHER, SELFPAY ==
--- NOTE | ~2024-03-11 | XR_ITS ---
EXAMINATION: XR KNEE, RIGHT CLINICAL INFORMATION: Right knee pain COMPARISON: None available. TECHNIQUE: Two views of the right knee. FINDINGS: No acute fracture or dislocation. No joint effusion. Mild medial compartment joint space narrowing. Tissues are unremarkable. XR/XR knee RT 2V IMPRESSION: Mild degenerative disease of the right knee.
--- NOTE | ~2024-03-11 | XR_ITS ---
EXAMINATION: XR HIP, RIGHT CLINICAL INFORMATION: Right hip pain COMPARISON: None available. TECHNIQUE: Two views of the right hip. FINDINGS: No fracture. Alignment is anatomic. Hip joint space is maintained. Soft tissues are unremarkable. XR/XR hip RT min 2V IMPRESSION: Normal right hip.
== END 2024-03-11 09:16 | disposition home or self-care (01) ==
LOC: HO.HMGCX 09:15
PROVIDERS: PCP Nurse Practitioner Family; Visit Provider Nurse Practitioner Family
DX: M25.551 Pain in right hip (principal); M25.561 Pain in right knee
CPT/HCPCS: 73502; 73560

== ENCOUNTER 2024-04-15 08:00 | Outpatient (RCR) | payer OTHER, SELFPAY ==
--- NOTE | 2024-04-03 08:11 | MHC.PT.EP ---
[facility] [place] Office [place] Office [place] Office [address] [place]var[place] [address] [phone] F: [phone] F: [phone] F: [phone] F: [phone] Physical Therapy Plan of Care Date of Evaluation: 04/03/24 Date of Surgery: Diagnosis: R knee pain Assessment: 48 y/o female referred to PT with R knee pain. S/s consistent with lumbar derangement, SI dysfunction, and ITB syndrome. Pain and difficulty with walking, stairs, sleeping, rolling in bed, gettting in/out of car and working in [employer] center. Examination shows decreased lumbar AROM, decreased R hip AROM, decreased R LE strength, pain, impaired gait pattern, altered SI mechanics, and pt responded with extension directional preference. Recommend PT 1-2x/week for 6 weeks to address impairments, implement HEP, and optimize functional mobility. Frequency and Duration: The patient will be seen 2x/week for 6 weeks Short Term Goals: 3 weeks I with HEP Pt will reports 50% decrease in LE pain with functional mobility showing centralization Erp Implementation Consultant Goals: 6 weeks I with HEP and self management of sx Pt will demonstrate full R hip AROM to facilitate getting in/out of car with pain < 3/10 Pt will improve LEFS to 60/80 Treatment Plan: Modalities to reduce pain, spasms and effusion. Manual therapy to restore motion and function. Therapeutic exercise to improve strength and flexibility. Neuromuscular re-education for posture and balance. Therapeutic activities to return to functional activities of daily living. Electronically signed by: Mary Louise PT Please sign and return to therapist. Thank you for your referral.
--- NOTE | 2024-05-29 07:32 | MHC.PT.DC ---
[facility] [place] Office [place] Office [place] Office [address] [place] Alvarado [address] [phone] F: [phone] F: [phone] F: [phone] F: [phone] Physical Therapy Discharge Report Diagnosis: R knee pain Date of Surgery: Date of Evaluation: 04/03/24 Date of Discharge: 05/29/24 Treatments to Date: 4 Cancellations to Date: 1 No Shows to Date: 0 Discharge Status: Independent with HEP Discharge Summary: Pt did not f/u with further visits after vacation and is now d/c. Pt made minimal progress with PT and did not complete full POC. Electronically signed by: Mary Louise PT Please sign and return to therapist. Thank you for your referral.
== END 2024-05-29 07:32 | disposition home or self-care (01) ==
LOC: HO.PTCHIC 08:00
PROVIDERS: PCP Nurse Practitioner Family; Visit Provider Nurse Practitioner Family
DX: M25.561 Pain in right knee (principal)
CPT/HCPCS: 97110; 97140; 97161

== ENCOUNTER 2024-08-10 08:00 | Outpatient (RCR) | payer OTHER, SELFPAY ==
--- NOTE | 2024-06-26 14:41 | MHC.PT.EP ---
[facility] [place] Office [place] Office [place] Office [address] [phone] F: [phone] F: [phone] F: [phone] F: [phone] Physical Therapy Plan of Care Date of Evaluation: 06/26/24 Date of Surgery: Diagnosis: pain in R knee Assessment: 48 y/o female referred to PT with R knee pain. S/s consistent with lumbar derangement, SI dysfunction, and ITB syndrome. Pain and difficulty with walking, stairs, sleeping, rolling in bed, gettting in/out of car and working in [employer] center. Examination shows decreased lumbar AROM, decreased R piriformis/ HS/ hip flexor length, decreased R LE strength, pain, altered SI mechanics, and impaired gait pattern. Recommend PT 1-2x/week for 6 weeks to address impairments, implement HEP, and optimize functional mobility. Frequency and Duration: The patient will be seen 2x/week for 6 weeks Short Term Goals: 3 weeks I with HEP Pt will reports 50% decrease in lateral hip pain with mobility (IR 5-7) Jail Goals: 6 weeks I with HEP and self management of sx Pt will be able to ascend/ descend stairs with pain < 3/10 Pt will improve LEFS to 50/80 Treatment Plan: Modalities to reduce pain, spasms and effusion. Manual therapy to restore motion and function. Therapeutic exercise to improve strength and flexibility. Neuromuscular re-education for posture and balance. Therapeutic activities to return to functional activities of daily living. Electronically signed by: Mary Louise PT Please sign and return to therapist. Thank you for your referral.
--- NOTE | 2024-09-15 10:45 | MHC.PT.DC ---
[facility] [place] Office [place] Office [place] Office [address] Gerson Alvarado [address] [phone] F: [phone] F: [phone] F: [phone] F: [phone] Physical Therapy Discharge Report Diagnosis: pain in R knee Date of Surgery: Date of Evaluation: 06/26/24 Date of Discharge: 09/15/24 Treatments to Date: 6 Cancellations to Date: 5 No Shows to Date: 0 Discharge Status: Independent with HEP Visit Non-compliance Discharge Summary: Pt did not f/u with final visits. At time of last attended visit, pt had less back pain however continued hip pain. Updated HEP to add more lateral lunges to encourage glut activation. At this time, d/c to I HEP Electronically signed by: Mary lira PT Please sign and return to therapist. Thank you for your referral.
== END 2024-09-15 10:45 | disposition home or self-care (01) ==
LOC: HO.PTCHIC 08:00
PROVIDERS: PCP Nurse Practitioner Family; Visit Provider Nurse Practitioner Family
DX: M25.561 Pain in right knee (principal)
CPT/HCPCS: 97110; 97140; 97161

== ENCOUNTER 2024-09-04 08:29 | Outpatient (REF) | payer OTHER, SELFPAY ==
[2024-09-04 09:58] LABS: MANUAL DIFF FLAG NO
[2024-09-04 10:05] LABS: Basophils Percent Auto 0.7 % (0-2); Eosinophils Absolute Auto 0.1 X10*3/uL (0.0-0.4); Eosinophils Percent Auto 1.5 % (0-4); Hematocrit 43.5 % (37.0-47.0); Hemoglobin 14.6 g/dl (12.0-16.0); Imm Gran Abs Auto 0.02 X10*3/uL (0.00-0.03); Imm Gran Pct Auto 0.4 % (0.0-0.4); Lymphocytes Percent Auto 17.4 % (20-40); Mean Corpuscular HGB Conc 33.6 g/dl (31.0-35.0); Mean Corpuscular Hemoglobin 32.2 pg (27.0-33.0); Monocytes Absolute Auto 0.3 X10*3/uL (0.1-1.2); Monocytes Percent Auto 6.1 % (2-11); Neutrophils Percent Auto 73.9 % (45-73); Platelet Count 273 X10*3/uL (160-400); Red Blood Count 4.53 X10*6/uL (4.20-5.50); Red Cell Distribution Width 12.7 % (11.0-16.0); White Blood Count 5.5 X10*3/uL (4.8-10.8)
[2024-09-04 10:13] LABS: Appearance Urine Clear; Color Urine Yellow; Glucose Urine UA Negative (Negative); Leukocyte Esterase Urine Negative (Negative); Nitrite Urine Negative (Negative); PH 7.5 (5.0-9.0); Specific Gravity - Urine <= 1.005 (1.005-1.025); Urine Blood Negative (Negative); Urine Ketones Negative (Negative); Urine Protein Negative (Neg-Trace)
[2024-09-04 10:31] LABS: Alanine Aminotransferase 29 U/L (0-31); Albumin Level 4.5 g/dL (3.5-5.0); Alkaline Phosphatase 57 U/L (39-117); Anion Gap 11 (12-20); Aspartate Amino Transferase 25 U/L (5-31); Bilirubin Total 0.6 mg/dL (0.0-1.0); Blood Urea Nitrogen 15 mg/dL (9-16); Calcium 9.1 mg/dL (8.4-10.2); Carbon Dioxide 25 mmol/L (22-29); Chloride 104 mmol/L (96-108); Cholesterol 190 mg/dL (<200); Estimated Glomerular Filt Rate > 60; Glucose Fasting 106 mg/dL (60-99); HDL Cholesterol 68 mg/dL (>40); LDL Cholesterol Calculated 105 mg/dL (<100); Potassium 4.1 mmol/L (3.3-5.1); Sodium 136 mmol/L (135-145); Triglycerides 87 mg/dL (<150)
[2024-09-04 10:48] LABS: TSH reflex Free T4 1.14 uIU/mL (0.32-4.0); Vitamin D 25-OH Total 26.8 ng/mL (>30)
== END 2024-09-04 08:30 | disposition home or self-care (01) ==
LOC: HO.HMGCLDS 08:29
PROVIDERS: PCP Nurse Practitioner Family; Visit Provider Nurse Practitioner Family
DX: Z00.00 Encounter for general adult medical examination without abnormal findings (principal); E55.9 Vitamin D deficiency, unspecified
CPT/HCPCS: 36415; 80053; 80061; 81003; 82306; 84443; 85025

== ENCOUNTER 2024-09-07 09:01 | Outpatient (AMB) | payer OTHER, SELFPAY ==
[2024-09-07 09:03] VITALS: BP 122/80; PULSE 80; O2SAT 98; BMI 31.6
--- NOTE | 2024-09-07 09:03 | A.OFFPC_ITS ---
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 Accompanied by: Self / Same As Patient Allergies penicillin V Allergy (Unknown, Verified 09/07/24 09:50) Rash Medication List - Last Reconciled 09/07/24 by ROLAN Magallon bupropion HCl SR 150 mg PO BID levonorgestrel (Mirena) 1 device intrauterine DAILY naproxen 500 mg PO BID 30 days Tobacco use date assessed: 09/07/24 Dental Screening Dental Screen Date: 09/07/24 Did you have a dental visit in the last 12 months?: Yes Did you have a dental problem in the last 6 months where you did not have access to dental care?: No Was dental information given to patient?: Patient has dentist HPI Annual PE HPI Details History of Present Illness The patient is a 49 year old female presenting for a routine physical examination. She maintains adherence to routine cancer screenings, with her colonoscopy and mammogram both reported as up to date. She reports continuous smoking at approximately half a pack of cigarettes daily (x 3 years only) and is actively working on cessation. The patient explicitly denies experiencing shortness of breath, chest pain, numbness, tingling, anxiety, depression, suicidal ideation, or homicidal ideation. These details affirm the patient?s c [facility] state of health and preventive care measures. Health Maintenance - Colonoscopy screening is up to date. - Mammogram screening is up to date. - Smoking cessation efforts are ongoing. Social History - Smokes approximately half a pack of ci garettes per day and is actively attempting to quit. Review of Systems - Respiratory: Denies shortness of breat h or chest pain. - Neurological: Denies numbness, tinglin g. - Psychiatric: Denies anxiety, depressio n, suicidal and homicidal ideation. Physical Exam General: Cooperative, healthy appearing, comfortable, no acute distress and well developed Orientation: Patient oriented x3 Limitations: No limitations Head: Normal to inspection Ears: Hearing grossly normal bilaterally Nose: Normal external nose present Face and sinus: Normal facial exam Eyes: Appearance normal, both eyes and all related structures Neck: Normal visual inspection and Yes full ROM Respiratory: Normal respiratory effort and able to speak in complete sentences. Clear to auscultation bilaterally Cardiovascular: Regular rate and rhythm. Normal S1 and S2 GI: Normal to inspection. Soft to palpation and nontender Skin: No rashes or lesions noted Neuro: Patient oriented x3 Extremities: Normal to inspection Results Plan - Continue to work on smoking cessation, including potential interventions if necessary, to support tobacco use disorder management. - Ensure maintenance of routine screenin gs and preventive health measures as currently adhered to. Patient was informed and verbally consented to the use of an ambient scribe for clinic note documentation during this visit. Discussion Notes I reviewed with the patient the continued importance of regular health screenings, including mammograms and colonoscopies, which are both up to date. We discussed her tobacco use disorder, emphasizing the benefits of quitting, potential strategies, and resources available for successful cessation. The patient agreed to continue working on reducing her smoking. There was no indication for additional diagnostic testing or treatment of acute conditions during this visit, as the patient denied any relevant symptoms. Patient Instructions - Continue efforts to quit smoking; cons ider available cessation programs if needed. - Keep up to date with routine health sc reenings such as mammograms and colonoscopies. - Report any new or concerning symptoms promptly. - elevated BMI, pt counselled on weight loss [facility] Medical History Lyme meningitis Cough Fatigue Hand arthritis Raynauds disease Surgical History History of placement of ear tubes Family History Maternal Aunt Colon cancer Father HTN (hypertension) Mother HTN (hypertension) Social History Housing: House Alcohol intake: never Patient Tobacco Use Status: Current someday Tobacco user Tobacco use type: Cigarette Years Smoked: quit 30 years ago e-Cigarette/Vaping Use: Never Used Second Hand Smoke Exposure: No service: No Current occupational status: employed Current occupation: [employer] Current occupational exposures/hazards: No Cognitive needs: No Hearing needs: No Vision needs: No Female Reproductive History Menstrual Age of Menarche: 9 Questionnaire PHQ-9 Over the last 2 weeks, how often have you been bothered by any of the following problems? 1. Little interest or pleasure in doing things: not at all 2. Feeling down, depressed, or hopeless: not at all 3. Trouble falling or staying asleep, or sleeping too much: not at all 4. Feeling tired or having little energy: not at all 5. Poor appetite or overeating: not at all 6. Feeling bad about yourself - or that you are a failure or have let yourself or your family down: not at all 7. Trouble concentrating on things, such as reading the newspaper or watching television: not at all 8. Moving or speaking so slowly that other people could have noticed. Or the opposite - being so fidgety or restless that you have been moving around a lot more than usual: not at all 9. Thoughts that you would be better off or of hurting yourself in some way: not at all Total score: 0 Depression Screening Interpretation: Negative Depression Screening Done: Yes 18232 - PHQ-9 Billing: Yes Source: Developed by Drs. Randy Dowell, Silvia Andre, Jonnathan Abdul and colleagues, with an educational derian from [employer] ([employer]). Thrive Questionnaire Date Thrive assessed: 09/07/24 I am a: Patient What is your living situation today?: I have a steady place to live Within the past 12 months, did the food you bought not last and you didn't have the money to get more?: Never true Within the past 12 months, did you worry whether your food would run out before you got money to buy more?: Never true Do you have trouble paying for medicines?: No Do you have trouble getting transportation to medical appointments?: No Do you have trouble paying your heating and electricity bill?: No Do you have trouble taking care of your child, family member or friend?: No Do you have trouble with day-to-day activities such as bathing, preparing meals, shopping, managing finances, etc.?: No Are you currently unemployed and looking for a job?: No Are you interested in more education?: No Please select the resources that you would like help with: None Currently or been in a relationship where the following occur: No concerns reported THRIVE Score: 0 AUDIT C Alcohol Use Questionnaire (AUDIT-C) 1. How often do you have a drink containing alcohol?: Monthly or less 2. How many drinks containing alcohol do you have on a typical day when you are drinking?: 1 or 2 3. How often do you have six or more drinks on one occasion?: Never Total Score: 1 Score Reviewed/Action Taken: Yes MIGUEL-7 AMB Questionnaire MIGUEL-7 Date MIGUEL - 7 assessed: 09/07/24 Feeling nervous, anxious, or on edge: 0 = Not at all Not being able to stop or control worryin = Not at all Worrying too much about different things: 0 = Not at all Trouble relaxin = Not at all Being so restless that it is hard to sit still: 0 = Not at all Becoming easily annoyed or irritable: 0 = Not at all Feeling afraid as if something awful might happen: 0 = Not at all Total MIGUEL-7 score (0-4 normal; 5-9 mild; 10-14 moderate; 15-21 severe): 0 Source: Developed by Drs. Randy Dowell, Silvia Andre, Jonnathan Abdul and colleagues, with an educational derian from [employer] (formerly [employer]). MIGUEL-7 Assessment Billing MIGUEL-7 Assessment Tool: MIGUEL-7 Assessment 84405 Physical exam (Primary Care) Vital Signs: Last Vital Signs Pulse 80 09/07/24 09:03 BP 122/80 09/07/24 09:03 Pulse Ox 98 09/07/24 09:03 Oxygen Delivery Method Room Air 09/07/24 09:03 BMI result Body Mass Index 31.6 Tobacco/Smoking Status: Tobacco use Status Tobacco use date assessed 09/07/24 09/07/24 09:06 Patient Tobacco Use Status Current someday Tobacco 09/07/24 09:06 Tobacco use type Cigarette 09/07/24 09:06 e-Cigarette/Vaping Use Never Used 09/07/24 09:06 PHQ-9: PHQ-9 Score PHQ-9: Total score 0 09/07/24 09:06 Depression Screening Interpretation: Negative Thrive Assessment: Date of Thrive Assessment Date Thrive assessed 09/07/24 09/07/24 09:06 Currently or been in a relationship where the following occur: No concerns r eported Coding Level of Care Code Est Pt Prev Care 40-64y(23242) Diagnoses Physical exam Z00.00 Additional Codes MIGUEL-7 Assessment Billing - MIGUEL-7 Assessment Tool: MIGUEL-7 Assessment 93502 ([id number]) PHQ-9 - 62306 - PHQ-9 Billing: Yes ([id number]) Assessment & Plan Assessment & Plan (1) Physical exam: Code(s): Z00.00 - Encounter for general adult medical examination without abnormal findings Category: Medical Plan .
== END 2024-09-07 09:58 | disposition home or self-care (01) ==
PROVIDERS: PCP Nurse Practitioner Family; Visit Provider Nurse Practitioner Family
DX: Z00.00 Encounter for general adult medical examination without abnormal findings (principal)

== ENCOUNTER → 2024-09-07 09:01 | Outpatient (BNVA) | payer OTHER, SELFPAY | PROVIDERS: PCP Nurse Practitioner Family; Visit Provider Nurse Practitioner Family | DX: Z00.00 Encounter for general adult medical examination without abnormal findings (principal) | CPT/HCPCS: 96127; 99396 ==

== ENCOUNTER 2024-12-10 09:51 | Outpatient (REF) | payer OTHER, SELFPAY ==
[2024-12-10 14:23] LABS: Influenza A PCR NEGATIVE (Negative); Influenza B PCR NEGATIVE (Negative); Resp Syncy Virus RNA Qual PCR NEGATIVE (Negative); SARS COV2 PCR INHOUSE NEGATIVE (Negative)
== END 2024-12-10 09:52 | disposition home or self-care (01) ==
LOC: HO.LAB 09:51
PROVIDERS: Physician Assistant; PCP Nurse Practitioner Family
DX: J06.9 Acute upper respiratory infection, unspecified (principal); R09.89 Other specified symptoms and signs involving the circulatory and respiratory systems
CPT/HCPCS: 0241U; 99212

== ENCOUNTER 2024-12-10 09:51 | Outpatient (AMB) | payer OTHER, SELFPAY ==
--- NOTE | 2024-12-10 09:54 | AM.OFFWIN_ITS ---
Intake Vital Signs 12/10/24 09:55 Height 5 ft 8 in Weight 208 lb BMI 31.6 BP 138/80 Blood Pressure Location Lt brachial Position Sitting Pulse 82 Pulse Source Pulse Oximeter Temp 98.1 F Temp Source Oral Pulse Oximetry (%) 98 Intake Visit Reasons: EP cold, chest congestion, cough Patient Tobacco Use Status: Current someday Tobacco user Allergies penicillin V Allergy (Unknown, Verified 12/10/24 09:55) Rash Do you need a note to return to daycare/school/sports/work: Yes HPI HPI Comments History of Present Illness Details History - The patient is a 49-year-old female pr esenting with persistent symptoms following a recent cold. - She reports symptoms continuing over t hree to four days. Initially, the patient experienced a cold with quick resolution but has persistent chest- related symptoms. - The patient has no history of asthma o r COPD and reports breathlessness only with physical exertion like climbing stairs. She denies wheezing. 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 - The patient reports no significant fev er, a one-time severe headache, and no sinus or ear pain. - Others in her proximity experienced si milar conditions which resolved without antibiotics, offering context that supports a viral etiology. Physical Exam General: Cooperative, healthy appearing, comfortable and no acute distress Orientation/consciousness: Patient oriented x3 Limitations: No limitations Head: Normal to inspection Ears: Hearing grossly normal bilaterally, external ears normal and TM's normal bilaterally with some fluid in the right ear, no evidence of infection. Nose: Normal external nose present, Normal nares present and No nasal discharge present Face and sinus: Normal facial exam and Yes sinuses with a little tenderness Mouth: Normal oral and palatal mucosa present and moist mucous membranes Throat: Yes tonsils normal, Yes uvula midline. Posterior oropharynx erythema Eyes: Appearance normal, both eyes and all related structures Neck: Normal visual inspection Respiratory: Clear to auscultation bilaterally. Normal respiratory effort, able to speak in complete sentences, Actively coughing, no respiratory distress, not tachypneic, no tripod positioning and no use of accessory muscles Cardiovascular: Regular rate and rhythm. Normal S1 and S2 Skin: No rashes or lesions noted Neuro: Patient oriented x3 Extremities: Normal to inspection and Yes no clubbing, cyanosis or edema [facility] Medical History Lyme meningitis Cough Fatigue Hand arthritis Raynauds disease Surgical History History of placement of ear tubes Family History Maternal Aunt Colon cancer Father HTN (hypertension) Mother HTN (hypertension) Social History Housing: House Alcohol intake: never Patient Tobacco Use Status: Current someday Tobacco user Tobacco use type: Cigarette Years Smoked: quit 30 years ago e-Cigarette/Vaping Use: Never Used Second Hand Smoke Exposure: No service: No Current occupational status: employed Current occupation: [employer] Current occupational exposures/hazards: No Cognitive needs: No Hearing needs: No Vision needs: No Female Reproductive History Menstrual Age of Menarche: 9 Review of Systems Const All systems reviewed & are unremarkable except as noted in HPI and below Physical Exam Vital Signs: Last Vital Signs Temp 98.1 F 12/10/24 09:55 Pulse 82 12/10/24 09:55 BP 138/80 12/10/24 09:55 Pulse Ox 98 12/10/24 09:55 BMI result Body Mass Index 31.6 Assessment & Plan Assessment & Plan (1) URI, acute: Code(s): J06.9 - Acute upper respiratory infection, unspecified Plan: VSS, pt well appearing and PE unremarkable. The patient is advised to start Flonase to manage nasal congestion and aid in fluid drainage however pt declined as she doesn't like nasal sprays. I discussed the use of Anita D for its combined antihistamine and decongestant properties, providing relief from pressure, and NyQuil at bedtime will aid in symptom resolution through its drying effect. The lungs are clear, offering reassurance about respiratory status. We will follow up with test results for flu, COVID-19, and RSV to confirm the viral etiology. Patient was informed and verbally consented to the use of an ambient scribe for clinic note documentation during this visit Orders: Orders SARS-CoV2/FLU/RSV Today R09.89 - Other specified symptoms and signs involving the circulatory and respiratory systems Coding Level of Care Code Est Pt Level 3 (73074) Diagnoses URI, acute J06.9
[2024-12-10 09:55] VITALS: BP 138/80; PULSE 82; TEMP 36.7; O2SAT 98; BMI 31.6
== END 2024-12-10 10:38 | disposition home or self-care (01) ==
PROVIDERS: PCP Nurse Practitioner Family; Visit Provider Physician Assistant
DX: J06.9 Acute upper respiratory infection, unspecified (principal)

== ENCOUNTER 2025-03-10 08:42 | Outpatient (AMB) | payer OTHER, SELFPAY ==
[2025-03-10 08:52] VITALS: BP 132/80; PULSE 74; O2SAT 98; BMI 31.3
--- NOTE | 2025-03-10 08:52 | A.OFFPC_ITS ---
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 History of Present Illness The patient is a 49-year-old female presenting with elevated fasting blood sugar. 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 The patient has been working excessively, which may contribute to her current condition. Additionally, the patient has a known vitamin D deficiency, which will be reassessed during this visit. Social History - Employment: The patient has taken on i ncreased responsibilities at work, leading to elevated stress levels. Health Maintenance - Monitoring of fasting blood sugar leve ls - Assessment and management of vitamin D deficiency Review of Systems denies any CP, SOB, ABD pain, n/v, constipation, diarrhea Physical Exam General: Obese Orientation: Patient oriented x3 Limitations: No limitations Head: Normal to inspection Ears: Hearing grossly normal bilaterally Nose: Normal external nose present Face and sinus: Normal facial exam Eyes: Appearance normal, both eyes and all related structures Neck: Normal visual inspection and Yes full ROM Respiratory: Normal respiratory effort and able to speak in complete sentences. Clear to auscultation bilaterally Cardiovascular: Regular rate and rhythm. Normal S1 and S2 GI: Normal to inspection. Soft to palpation and nontender Skin: No rashes or lesions noted Neuro: Patient oriented x3 Extremities: Normal to inspection Results Plan The plan includes monitoring the patient's fasting blood sugar levels to assess any changes or trends. Additionally, the patient's vitamin D levels will be evaluated and managed accordingly. [facility] Medical History Lyme meningitis Cough Fatigue Hand arthritis Raynauds disease Surgical History History of placement of ear tubes Family History Maternal Aunt Colon cancer Father HTN (hypertension) Mother HTN (hypertension) Social History Housing: House Alcohol intake: never Patient Tobacco Use Status: Current someday Tobacco user Tobacco use type: Cigarette Years Smoked: quit 30 years ago e-Cigarette/Vaping Use: Never Used Second Hand Smoke Exposure: No service: No Current occupational status: employed Current occupation: [employer] Current occupational exposures/hazards: No Cognitive needs: No Hearing needs: No Vision needs: No Female Reproductive History Menstrual Age of Menarche: 9 Questionnaire PHQ-9 Over the last 2 weeks, how often have you been bothered by any of the following problems? 1. Little interest or pleasure in doing things: not at all 2. Feeling down, depressed, or hopeless: not at all 3. Trouble falling or staying asleep, or sleeping too much: not at all 4. Feeling tired or having little energy: nearly every day 5. Poor appetite or overeating: not at all 6. Feeling bad about yourself - or that you are a failure or have let yourself or your family down: not at all 7. Trouble concentrating on things, such as reading the newspaper or watching television: not at all 8. Moving or speaking so slowly that other people could have noticed. Or the opposite - being so fidgety or restless that you have been moving around a lot more than usual: not at all 9. Thoughts that you would be better off or of hurting yourself in some way: not at all Total score: 3 Depression Screening Interpretation: Negative Depression Screening Done: Yes [id number] - PHQ-9 Billing: Yes Source: Developed by Drs. Randy Dowell, Silvia Andre, Jonnathan Abdul and colleagues, with an educational derian from [employer]. Thrive Questionnaire Date Thrive assessed: 03/10/25 I am a: Patient What is your living situation today?: I have a steady place to live Within the past 12 months, did the food you bought not last and you didn't have the money to get more?: Never true Within the past 12 months, did you worry whether your food would run out before you got money to buy more?: Never true Do you have trouble paying for medicines?: No Do you have trouble getting transportation to medical appointments?: No Do you have trouble paying your heating and electricity bill?: No Do you have trouble taking care of your child, family member or friend?: No Do you have trouble with day-to-day activities such as bathing, preparing meals, shopping, managing finances, etc.?: No Are you currently unemployed and looking for a job?: No Are you interested in more education?: No Please select the resources that you would like help with: None Currently or been in a relationship where the following occur: No concerns reported THRIVE Score: 0 AUDIT C Alcohol Use Questionnaire (AUDIT-C) 1. How often do you have a drink containing alcohol?: Monthly or less 2. How many drinks containing alcohol do you have on a typical day when you are drinking?: 1 or 2 3. How often do you have six or more drinks on one occasion?: Never Total Score: 1 Score Reviewed/Action Taken: Yes MIGUEL-7 AMB Questionnaire MIGUEL-7 Date MIGUEL - 7 assessed: 03/10/25 Feeling nervous, anxious, or on edge: 0 = Not at all Not being able to stop or control worryin = Not at all Worrying too much about different things: 0 = Not at all Trouble relaxin = Not at all Being so restless that it is hard to sit still: 0 = Not at all Becoming easily annoyed or irritable: 0 = Not at all Feeling afraid as if something awful might happen: 0 = Not at all Total MIGUEL-7 score (0-4 normal; 5-9 mild; 10-14 moderate; 15-21 severe): 0 Source: Developed by Drs. Randy Dowell, Silvia Andre, Jonnathan Abdul and colleagues, with an educational derian from [employer]. MIGUEL-7 Assessment Billing MIGUEL-7 Assessment Tool: MIGUEL-7 Assessment 94437 Physical exam (Primary Care) Vital Signs: Last Vital Signs Pulse 74 03/10/25 08:52 BP 132/80 03/10/25 08:52 Pulse Ox 98 03/10/25 08:52 Oxygen Delivery Method Room Air 03/10/25 08:52 BMI result Body Mass Index 31.3 Tobacco/Smoking Status: Tobacco use Status Tobacco use date assessed 09/07/24 03/10/25 08:52 Patient Tobacco Use Status Current someday Tobacco 03/10/25 08:52 Tobacco use type Cigarette 03/10/25 08:52 e-Cigarette/Vaping Use Never Used 03/10/25 08:52 PHQ-9: PHQ-9 Score PHQ-9: Total score 3 03/10/25 08:55 Depression Screening Interpretation: Negative Thrive Assessment: Date of Thrive Assessment Date Thrive assessed 03/10/25 03/10/25 08:55 Currently or been in a relationship where the following occur: No concerns reported Coding Level of Care Code Est Pt Level 3 (66142) Diagnoses Elevated fasting blood sugar R73.01 Vitamin D deficiency E55.9 Additional Codes MIGUEL-7 Assessment Billing - MIGUEL-7 Assessment Tool: MIGUEL-7 Assessment 93770 ([id number]) PHQ-9 - 34185 - PHQ-9 Billing: Yes ([id number]) Assessment & Plan Assessment & Plan (1) Elevated fasting blood sugar: Code(s): R73.01 - Impaired fasting glucose Category: Medical (2) Vitamin D deficiency: Code(s): E55.9 - Vitamin D deficiency, unspecified Category: Medical Plan . Orders: Orders Vitamin D 25-OH Total Today E55.9 - Vitamin D deficiency, unspecified Complete Blood Count Auto Diff Today R73.01 - Impaired fasting glucose Comprehensive Orange. Panel Fast Today R73.01 - Impaired fasting glucose TSH reflex Free T4 Today R73.01 - Impaired fasting glucose UA CC w/rflx Micro + Cult Today R73.01 - Impaired fasting glucose Lipid Panel Today R73.01 - Impaired fasting glucose
== END 2025-03-10 09:45 | disposition home or self-care (01) ==
LOC: HO.HMCC 08:43
PROVIDERS: PCP Nurse Practitioner Family; Visit Provider Nurse Practitioner Family
DX: R73.01 Impaired fasting glucose (principal); E55.9 Vitamin D deficiency, unspecified

== ENCOUNTER → 2025-03-10 08:42 | Outpatient (BNVA) | payer OTHER, SELFPAY | PROVIDERS: PCP Nurse Practitioner Family; Visit Provider Nurse Practitioner Family | DX: R73.01 Impaired fasting glucose (principal); E55.9 Vitamin D deficiency, unspecified; Z13.31 Encounter for screening for depression; Z13.30 Encounter for screening examination for mental health and behavioral disorders, unspecified | CPT/HCPCS: 96127; 99212 ==